=== PATIENT | male | born 1945 | race Caucasian/White ===

== ENCOUNTER 2017-05-01 13:57 | Emergency (ER) | payer MEDICARE ==
--- NOTE | 2017-05-01 15:11 | ED ---
Abdominal Pain/Male - HPI Summary HPI Summary: 71 y/o male here c/o constipation unable to have a normal bowel movement in the last 4 days. He has been taking Senokot, Miralax and fleet enema and he has not been able to have a bowel movement. He has hx of constipation but usually it resolves with the above medications. He also has Hx of cholecytectomy 17 years ago. - History of Current Complaint Chief Complaint: UCGI Stated Complaint: ABDOMINAL PAIN/CONSTIPATION Time Seen by Provider: 05/01/17 15:01 Hx Obtained From: Patient Onset/Duration: Gradual Onset, Lasting Days - 7 days Timing: Constant Severity Initially: Moderate Severity Currently: Moderate Pain Scale Used: 0-10 Numeric - 2 Location: Diffuse Radiates: No Character: Cramping Aggravating Factor(s): Food Alleviating Factor(s): Nothing Associated Signs And Symptoms: Positive: Negative - Allergies/Home Medications Allergies/Adverse Reactions: Allergies Allergy/AdvReac Type Severity Reaction Status Date / Time Celecoxib [From Celebrex] Allergy Rash Verified 05/01/17 14:32 Cephalexin [From Keflex] Allergy Rash Verified 05/01/17 14:32 Metformin Allergy DIARRHEA Verified 05/01/17 14:32 AND CONSTIPATION PROBLEMS Silver Sulfadiazine Allergy Rash Verified 05/01/17 14:32 [From Silvadene] Venlafaxine [From Effexor] Allergy Edema Verified 05/01/17 14:32 Home Medications: Home Medications Zolpidem Tartrate [Ambien] 5 mg PO 05/01/17 [History] PMH/Surg Hx/FS Hx/Imm Hx Endocrine/Hematology History: Reports: Hx Diabetes - TYPE II- DIET CONTROLLED PER PATIENT Cardiovascular History: Reports: Hx Peripheral Vascular Disease - BOTH FEET Denies: Hx Hypertension, Hx Pacemaker/ICD GI History: Reports: Hx Irritable Bowel History: Denies: Hx Renal Disease Musculoskeletal History: Reports: Hx Arthritis - NECK, Other Musculoskeletal History - DDD, STENOSIS-LOWER BACK PRIMARILY PER PATIENT Sensory History: Reports: Hx Cataracts - BILATERAL, Hx Contacts or Glasses - GLASSES Denies: Hx Hearing Aid Opthamlomology History: Reports: Hx Cataracts - BILATERAL, Hx Contacts or Glasses - GLASSES Neurological History: Reports: Other Neuro Impairments/Disorders - RAYNOIDS DISEASE Psychiatric History: Denies: Hx Panic Disorder - Cancer History Cancer Type, Location and Year: BASAL CELL ON HEAD-REMOVED NO TREATMENT - Surgical History Surgery Procedure, Year, and Place: GALLBLADDER 1997. ROTATOR CUFF TEAR SHOULDER/AC JOINT CLEANOUT 2002. LEFT ROTATOR CUFF 2006. LUMP REMOVED LEFT TESTICLE 2006. BASAL CELL CARCINOMA REMOVED FROM HEAD 2007. BILATERAL CATARACTS 2016 Hx Anesthesia Reactions: Yes - INCREASED ANXIETY WHEN AWAKE DURING A PROCEDURE- VOMITING FROM ANXIETY Infectious Disease History: No Infectious Disease History: Denies: Traveled Outside the [place] in Last 30 Days - Social History Alcohol Use: Occasionally Alcohol Amount: FEW GLASSES OF WINE WEEKLY Substance Use Type: Reports: None Smoking Status (MU): Never Smoked Tobacco Have You Smoked in the Last Year: No Review of Systems Constitutional: Negative Eyes: Negative ENT: Negative Cardiovascular: Negative Respiratory: Negative Positive: Abdominal Pain, Nausea Genitourinary: Negative Musculoskeletal: Negative Skin: Negative Neurological: Negative Psychological: Normal All Other Systems Reviewed And Are Negative: Yes Physical Exam - Summary Physical Exam Summary: VITAL SIGNS: Reviewed. GENERAL: Patient is a well developed and nourished male who is sitting comfortable in the stretcher. Patient is not in any acute respiratory distress. HEAD AND FACE: Normacephalic and atraumatic. EYES: PERRLA, EOMI x 2, EARS: Hearing grossly intact. MOUTH: Oropharynx within normal limits. NECK: Supple, trachea is midline, no adenopathy, no JVD, no carotid bruit, no c- spine tenderness, neck with full ROM. CHEST: Symmetric, no tenderness at palpation LUNGS: CTA B/L. No wheezing or crackles. CVS: RRR, S1 and S2 present, no murmurs or gallops appreciated. ABDOMEN: Soft, NT, No distention. Normal BS. Rectal exam: Normal sphincter tone , one external hemorrhoid and no stool the vault. EXTREMITIES: FROM in all major joints, no edema, no cyanosis or clubbing. NEURO: Alert and oriented x 3. No acute neurological deficits. Speech is normal and follows commands. SKIN: Dry and warm Triage Information Reviewed: Yes Vital Signs On Initial Exam: Initial Vitals Temp Pulse Resp BP Pulse Ox 98.0 F 67 18 105/63 100 05/01/17 14:28 05/01/17 14:28 05/01/17 14:28 05/01/17 14:28 05/01/17 14:28 Vital Signs Reviewed: Yes Diagnostics - Vital Signs Vital Signs Temp Pulse Resp BP Pulse Ox 05/01/17 14:28 98.0 F 67 18 105/63 100 - Laboratory Lab Statement: Any lab studies that have been ordered have been reviewed, and results considered in the medical decision making process. Abdominal Pain Fem Course/Dx - Course Assessment/Plan: 71 y/o male here c/o constipation unable to have a normal bowel movement in the last 4 days. He has been taking Senokot, Miralax and fleet enema and he has not been able to have a bowel movement. He has hx of constipation but usually it resolves with the above medications. He also has Hx of cholecytectomy 17 years ago. Abdominal x ray was ordered to r/o constipation vs SBO. Xray is read negative for obstruction and positive for large amount of stool. Therefore he will be given a prescripion for Lactulose, fleet enema, miralax and colase. I discussed all the findings and test results with the patient. Patient was instructed to return to the emergency room immediately if any of the symptoms return or worsens. Plan of care was discussed with the patient and understands and agrees. All questions were answered at patient satisfaction. There were no further complaints or concerns. Lung exam before discharge: CTA B/L. Good air exchange. No wheezing or crackles heard. CVS: S1 and S2 present. No murmurs appreciated. Patient is alert and oriented x 3. Patient is hemodynamically stable. Patient will be discharged home with follow up telesales agent in the next 2-3 days - Diagnoses Differential Diagnosis/HQI/PQRI: Bowel Obstruction, Constipation Provider Diagnoses: Constipation Discharge - Discharge Plan Condition: Stable Disposition: HOME Prescriptions: Docusate CAP* [Colace Cap*] 100 mg PO BID PRN #10 cap PRN Reason: Constipation Lactulose* 30 ml PO DAILY PRN #1 bottle PRN Reason: Constipation Magnesium CITRATE* [Citrate of Magnesia*] 150 ml PO SEE INSTRUCTIONS #1 btl Ondansetron TAB* [Zofran 4 MG Tab*] 4 mg PO Q6H PRN #10 tab PRN Reason: Vomiting Polyethylene Glycol 3350* [Miralax*] 17 gm PO DAILY #12 packet Sodium Phosphate ADULT ENEMA* [Fleet Enema*] 1 enema GA BEDTIME PRN #2 btl PRN Reason: Constipation Patient Education Materials: Constipation (ED) Referrals: Thi Pan MD [Primary Care Provider] - Additional Instructions: Please increase water intake Increase fruits and vegetables If symptoms worsen please go to the ED
--- NOTE | 2017-05-01 15:34 | RAD ---
HISTORY: Constipation COMPARISONS: CT dated April 22, 2011 VIEWS: Frontal supine and upright views of the abdomen. FINDINGS: BOWEL: There is a nonobstructive bowel gas pattern. There is a large amount of stool within the colon. CALCULI: There are no abnormal calculi. BONES AND SOFT TISSUES: Mild degenerative changes are noted. OTHER FINDINGS: The lung bases are clear. There is no subphrenic gas. Surgical clips are noted in the right upper quadrant. IMPRESSION: NONOBSTRUCTIVE BOWEL GAS PATTERN. LARGE AMOUNT OF STOOL WITHIN THE COLON.
[2017-05-01 16:31] VITALS: BP 106/60
== END 2017-05-01 16:32 | disposition home or self-care (01) ==
LOC: UCEAST 13:57
DX: K59.00 Constipation, unspecified (principal); E11.9 Type 2 diabetes mellitus without complications; I73.9 Peripheral vascular disease, unspecified; K58.9 Irritable bowel syndrome, unspecified; M13.88 Other specified arthritis, other site; I73.00 Raynaud's syndrome without gangrene; Z88.3 Allergy status to other anti-infective agents
CPT/HCPCS: 74020; 99212; G0463

== ENCOUNTER 2017-08-03 08:05 | Day surgery (SDC) | payer MEDICARE ==
--- NOTE | 2017-07-28 07:20 | HP ---
CC: Dr. Pan * HISTORY AND PHYSICAL: DATE OF PLANNED ADMISSION AND SURGERY: 08/03/17 HISTORY OF PRESENT ILLNESS: Mr. Bull is a 71-year-old white male who is admitted with a suspicious bladder lesion for cystoscopy and excisional biopsy. I have been following with Mr. Bull for several years because of a prostate nodule and an element of bladder outlet obstruction. The prostate nodule was biopsied about 10 years ago and was benign. It has not changed in its consistency and his PSA has remained very low at 1.4. Over the last several months, he has noted pelvic pain, perineal discomfort associated with symptoms suggestive of prostatitis. He did not respond to several courses of antibiotics and also did not respond to treatment with NSAID. He had a pelvic MRI which was normal. He finally improved after he was referred for pelvic relaxation exercises with physiotherapy. He has been doing much better with improvement in his voiding. To rule out any urethral or bladder pathology, he underwent a flexible cystoscopy in the office. There was a suspicious papillary and flat lesions noted in the left trigone just cephalad to the left ureteral orifice that had the appearance of a well differentiated transitional cell carcinoma. No other suspicious bladder lesions were seen. Because of that finding, which is probably unrelated to his pelvic symptoms and pain, the patient is admitted for excisional biopsies. PAST MEDICAL HISTORY AND SYSTEM REVIEW: He is a nonsmoker. He is very healthy. He is on no chronic medications. He reports being allergic to KEFLEX, CELEBREX, SULFASILVADENE and to EFFEXOR. He denies any cardiac or pulmonary diseases or symptoms. PHYSICAL EXAMINATION GENERAL: Pleasant white male who looks rather anxious. VITAL SIGNS: Blood pressure 120/80, pulse of 80. LUNGS: Clear. HEART: Regular and rhythmic. No murmurs. ABDOMEN: Soft. No masses, no tenderness and no CVA tenderness. EXTERNAL GENITALIA: Normal. RECTAL: Exam shows a firm nodule in the right lobe of the prostate. IMPRESSION: 1. Pelvic floor syndrome, chronic prostatitis, much improved after physiotherapy. 2. Lesion in the left trigone of the bladder, suspicious for low-grade transitional cell carcinoma. PLAN: Cystoscopy and excisional biopsy of the above lesion. I discussed the above plans with the patient. All his questions were answered. The patient had a renal ultrasound in the office and the study was normal, showing normal kidneys, no hydronephrosis or renal masses. [id number]/[facility] #: [id number] [facility]
[~2017-08-03 08:05] MED LIST: Buffered Lidocaine 0.9% SYRIN* 5 ML/SYR SYRINGE INTRADERM ONE; Iohexol 180 (CONTRAST) 10 ML SDV IV ONE; Sodium Citrate/Citric Acid* 15 ML UDC PO ONE
[2017-08-03] MEDS ORDERED: Levofloxacin 750 MG IVPREMIX(* 750 MG/150 ML BAG ONE (08:18)
[2017-08-03] MEDS ORDERED: Sodium Citrate/Citric Acid* 15 ML UDC ONE (08:18)
[2017-08-03] MEDS ORDERED: Buffered Lidocaine 0.9% SYRIN* 5 ML/SYR SYRINGE ONE (08:18)
[2017-08-03] MEDS ORDERED: fentaNYL* 50 MCG/ML 2 ML VIAL (100 MCG VIAL) ONE ×2 (10:19→11:47)
[2017-08-03] MEDS ORDERED: Midazolam* 1 MG/ML 2 ML VIAL (2 MG) ONE (10:19)
[2017-08-03] MEDS ORDERED: Propofol* 10 MG/ML 20 ML BTL IV PUSH ONE (10:47)
[2017-08-03] MEDS ORDERED: Lidocaine 2% PF * 5 ML VIAL ONE (10:47)
[2017-08-03] MEDS ORDERED: Ondansetron INJ* 2 MG/ML VIAL IV PRN (11:34)
[2017-08-03] MEDS ORDERED: Naloxone* 0.4 MG/ML 1 ML VIAL IV PRN (11:34)
[2017-08-03] MEDS ORDERED: oxyCODONE/Acetamin 5/325 MG* TAB ONE ×2 (11:46→14:58)
[2017-08-03] MEDS: fentaNYL* 50 MCG/ML 2 ML VIAL (100 MCG VIAL) IV PRN ×2 (11:48→12:33)
[2017-08-03] MEDS ORDERED: oxyCODONE/Acetamin 5/325 MG* TAB PO PRN (11:52)
[2017-08-03] MEDS ORDERED: LR @ 40 MLS/HR IV SCH (12:00)
[2017-08-03] MEDS ORDERED: mitoMYcin PWD* 40 MG in Sterile Water for Inj* 40 ML IRRIGATION ONE (12:00)
[2017-08-03 15:09] VITALS: BP 119/67
--- NOTE | 2017-08-04 01:42 | OP ---
CC: Dr. Pan * DATE OF OPERATION: 08/03/17 - [facility] DATE OF : 49 SURGEON: Dell Guerrero MD ANESTHESIOLOGIST: Dr. Kristian Marina. ANESTHESIA: General. PRE-OP DIAGNOSIS: Suspicious bladder lesion, left base of bladder. POST-OP DIAGNOSIS: Suspicious bladder lesion, left base of bladder, pending pathology. OPERATIVE PROCEDURE: 1. Cystoscopy. 2. Excisional biopsy and fulguration of bladder lesion, left base. INDICATION FOR PROCEDURE: Mr. Bull is a 71-year-old white male whom I have been following because of bladder outlet obstruction, prostate nodule, and symptoms of chronic prostatitis. He is a nonsmoker. As part of the work-up of his voiding symptoms, he had an office cystoscopy, which showed a suspicious lesion in the left base of the bladder. Because of that finding, the patient is admitted for the above procedure. PATHOLOGY AT CYSTOSCOPY: The penile and bulbar urethrae looked normal. The prostatic urethra measured 2.5 cm in length and there was only moderate degree of obstruction by prostate enlargement. Examination of the bladder showed a single orifice on each site. The orifices looked normal. There was a small papillary lesion measuring about 5 mm in size, located just cephalad to the left ureteral orifice. Adjacent to that lesion, there was irregularity and elevation of the bladder mucosa, suspicious for flat transitional cell carcinoma or carcinoma in situ. The lesions covered an area of about 1 cm. The left ureteral orifice was intact and not involved with the lesions. The rest of the bladder wall looked normal. There were no other areas to suggest carcinoma in situ and no other papillary or suspicious lesions seen. Minimal trabeculations were noted. No calculi or diverticula were noted. DESCRIPTION OF PROCEDURE: After successful general anesthesia, the patient was placed in the lithotomy position and was prepped and draped for a cystoscopy. Cystoscopy was performed. The bladder was carefully inspected and the above findings were again noted. Using the rigid biopsy forceps, the above lesion was excised down to muscle. The sites of the biopsies and the surrounding areas were fulgurated with the Bugbee electrode using the coagulation current. There was no bladder perforation and the left ureteral orifice was intact. Clear efflux was noted from the orifice at the end of the procedure. At the completion of the procedure, there were no residual lesions seen. There was very good hemostasis. The ureteral orifice was intact. The cystoscope was removed and a size 16-Khmer English catheter was passed inside the bladder and the balloon inflated with 10 cc of water. The patient tolerated the procedure well and left the operating room in good condition. Because of the suspicious appearance of the lesion, the patient will be given one dose of intravesical mitomycin-C in the recovery room. [id number]/[facility] #: [id number] MTD[facility]
== END 2017-08-03 15:10 | disposition home or self-care (01) ==
LOC: OR 08:05
PROVIDERS: ATTEND Urology
DX: C67.5 Malignant neoplasm of bladder neck (principal); N41.1 Chronic prostatitis; E11.9 Type 2 diabetes mellitus without complications; K21.9 Gastro-esophageal reflux disease without esophagitis; I73.00 Raynaud's syndrome without gangrene
CPT/HCPCS: 88305; 88341; 88342; A9270-GY; J2250; J2704; J3010; J9280

== ENCOUNTER 2017-11-29 16:20 | Emergency (ER) | payer MEDICARE ==
--- OUTSIDE RECORDS SUMMARY | 2017-11-29 16:26 | XMS REPORT ---
:1945 External Reference #:[id number] Author Organization [facility] Address [address] [address] Phone [phone] Care Team Providers Name Role Phone Thi Pan MD Primary Care Physician Unavailable Payers Type Date Identification Numbers Payment Provider Subscriber Commercial Policy Number: [id number] [employer] Medicare Ann-Marie Rao Group Number: [id number] [address] PayID: [id number] [place] [address] Medigap Part B Expires: 2014 Policy Number: [employer] Insurance Ann-Marie [id number] Gregoria Group Number: [id number] [address] PayID: [id number] [place] [address] Advance Directives Type Date Description Status Comment Other Directive 01/25/2007 Current and Verified Problems Date Description Provider Status Onset: 09/16/2010 Type 2 diabetes mellitus Thi Pan M.D. Active Onset: 09/16/2010 Hyperlipidemia Thi Pan M.D. Active Onset: 12/27/2015 Irritable bowel syndrome Thi Pan M.D. Active Family History Date Family Member(s) Problem(s) Comments : (age 72 Father due to Heart onset in his 60s Years) Disease : (age 87 Mother due to RI Years) Siblings 4 Siblings 3 brothers, 1 sister, no RI, no CVA, no DM, all doing well Second Brother Melanoma Social History Type Date Description Comments Marital Status Occupation [employer] Occupation Retired from [employer] Health Care Proxy : Kassie Gavin Cigarette Use Never Smoked Cigarettes ETOH Use Drinks 1 Alcoholic Beverage Per Day Smoking Patient has never smoked General Hx Text Health Care Proxy: Kassie Gavin Allergies, Adverse Reactions, Alerts Date Description Reaction Status Severity Comments 02/25/2010 Keflex rash active Moderate 02/25/2010 Celebrex rash active Moderate 09/06/2011 Sulfadiazine rash active 03/07/2012 Effexor facial twitching active 02/15/2014 Metformin diarrhea active Medications Medication Date Status Form Strength Qnty SIG Indications Ordering Provider Doxycycline 07/20 Active Tablets 100mg 2tabs 2 cap one S70.362A [place] Monohydrate dose Rosa Martínez Tramadol HCL 03/18 Active Tablets 50mg 120ta 1-2 tablets R10.2 bs every 6 Cotton, hours as M.D. needed Zolpidem 09/28 Active Tablets 10mg 30tab take 1/2 to G47.00 Thi Tartrate s 1 tablet at Cotton, bedtime as M.D. needed maximum daily dose=1 Voltaren 04/29 Active Gel 1% 300gm apply 2 grams to Cotton, affected M.D. area twice a day, as needed Omeprazole 10/[address] 40mg 30cap 1 by mouth K58.9 s every day Cotton, as needed M.D. Luxiq 05/20 Active Foam 0.12% 100gm apply to ears as ELISA Hernandez needed Vitamin B-12 09/05 Active Tablets Sub 1000mcg 1 by mouth once daily Cotton, M.D. Elizabeth Contour 02/06 Active Strips 50uni test once Thi Blood Glucose ts daily Cotton, Test Strips M.D. Fluticasone 09/06 Active Suspension 50mcg/Act 16gm 2 Thi Propionate intranasal Cotton, puffs once M.D. daily as needed Lancets And 10/13 Active 50uni for use Thi Test Strips ts once daily Cotton, M.D. Vitamin C Active Capsules 500mg 1 po qd Unknown /0000 Multi For Him Active Capsules 1 po qd Unknown /0000 Aspir-[address] 81mg 1 po qd Unknown /0000 Saw [place] Active Capsules 450mg 120ca 1 po bid ps Tamsulosin HCL Active Capsules 0.4mg 1 by mouth Unknown every day Azithromycin 11/03 Hx Tablets 250mg 6tabs 2 tabs by J06.9 Chris mouth on Bengali, [employer] - day 1; 1 11/08 tab mouth every day on days 2- Azithromycin 05/20 Hx Tablets 250mg 6tabs 2 tabs by 461.8 Johny mouth every Mary, [employer] - day x1 day, 08/19 1 tab by mouth every day x 4 days Analpram-HC 05/07 Hx Cream 1-1% 30gm apply bid 455.6 prn Fredy Pna M.DLaine 03/19 Azithromycin 01/05 Hx Tablets 250mg 6tabs 2 tabs po 461.9 on day 1; 1 Cotton, - tab po qd M.D. 01/16 on days 2- Azithromycin 09/20 Hx Tablets 250mg 6tabs 2 tabs po on day 1; 1 Cotton, - tab po qd M.D. 01/05 on days 2- Azithromycin 07/12 Hx Tablets 250mg 6tabs two tabs 461.9 day one, Karson, N.P. - one daily 07/22 till Metformin HCL 11/22 Hx Tablets 500mg 30tab Take One 250.00 s Tablet By Cotton, - Mouth Every M.D. Lovastatin 11/22 Hx Tablets 40mg 90tab Take 1 s Tablet By Cotton, - Mouth At M.D. 11/03 Bedtime Azithromycin 09/06 Hx Tablets 250mg 6tabs 2 tabs po 461.9 on day 1; 1 Cotton, - tab po qd M.D. 11/20 on days 2- Zithromax Z-Riley 01/20 Hx Tablets 250mg 1Pack two po initially Maxim, - then one po M.D. 01/30 Orthotics 11/04 Hx 1Pair Cotton, - M.D. 04/28 Guaiatussin ac 09/22 Hx Syrup 100-10mg/ 240ml 2 teaspoons 5ML by mouth Cotton, - every 4 M.D. 10/13 hours needed Zolpidem 09/17 Hx Tablets 10mg 20tab 07/26 - 1 466.0 Thi Tar s tablet by Cotton, - mouth once M.D. 11/22 daily at bedtime Azithromycin 09/10 Hx Tablets 250mg 6tabs 2 tabs po 461.9 on day 1; 1 Cotton, - tab po qd M.D. 09/17 on days 2- Tramadol HCL 09/10 Hx Tablets 50mg 30tab 1-2 tablets 338.29 s every 6 Cotton, - hours as M.D. 09/17 needed to 8 per day Zithromax Z-Riley 05/27 Hx Tablets 250mg 1Pack two po initially Cotton, - then one po M.D. 06/06 Luxiq 03/02 Hx Foam 0.12% 100gm apply to ears as Cotton, - needed M.D. 08/25 Fluticasone Hx Suspension 50mcg/Act 1bott 2 spray Edwige Propionate le each Elle, - nostril in M.D., FACP 09/17 Lovastatin Hx Tablets 20mg 30tab Take One Thi /0000 s Tablet By Cotton, - Mouth At M.D. 11/22 Bedtime Melatonin Hx Capsules 5mg 1 po q hs Unknown - 03/07 Fish Oil Hx Capsules 1000mg 2 po qd Unknown - 02/15 Alpha Lipoic Hx Capsules 200mg 1 tab qd Unknown - 05/[address] 40mg 1 by mouth Unknown Sodium every day - (prescribed 07/25 at ER) Linzess Hx Capsules 145mcg take 1 Tatum, capsule by MD Jonas - mouth one 04/29 time daily /2015 Ciprofloxacin Hx Solution 0.3% 4 drops to Unknown HCL /0000 right ear - twice a day 09/28 for 7 days Prednisolone Hx Suspension 1% Unknown Acetate /0000 - 09/28 Ketorolac Hx Solution 0.5% instill 1 Unknown Tromethamine /0000 drop into - the right 09/28 eye times a day starting the day b Immunizations CPT Code Status Date Vaccine Lot # [id number] Given 05/31/2017 Pneumonia Vaccine [id number] Given 05/19/2017 Influenza Virus Vaccine, Quadrivalent, Split, [id number] Preservative Free [id number] Given 05/28/2016 Influenza Virus Vaccine, Quadrivalent, Split [id number] Virus, Im Use [id number] Given 05/02/2015 Afluria Vaccine 44081 Given 03/20/2015 Pneumococcal Conjugate Vaccine 13 Valent For [id number] Intramuscular Use Q2035 Given 04/27/2014 Afluria Vaccine 95925 Given 09/03/2013 Zoster (Zostavax) [id number] 37793 Given 11/23/2011 Pneumonia Vaccine [id number] 06198 Given 05/01/2008 Tdap - Tetanus/Diptheria/Acellular Pertussis Vital Signs Date Vital Result Comment 11/03/2017 Weight 154.00 lb Heart Rate 66 /min BP Systolic Sitting 105 mmHg BP Diastolic Sitting 65 mmHg Body Temperature 96.6 F O2 % BldC Oximetry 97 % 07/20/2017 Height 72 inches 6'0" Weight 160.75 lb Heart Rate 82 /min BP Systolic 100 mmHg BP Diastolic 50 mmHg Body Temperature 95.9 F O2 % BldC Oximetry 98 % BMI (Body Mass Index) 21.8 kg/m2 05/31/2017 Height 72 inches 6'0" Weight 155.50 lb Heart Rate 67 /min BP Systolic 118 mmHg BP Diastolic 66 mmHg Body Temperature 95.9 F O2 % BldC Oximetry 98 % BMI (Body Mass Index) 21.1 kg/m2 04/26/2017 Height 72 inches 6'0" Weight 156.75 lb Heart Rate 66 /min Body Temperature 96.8 F O2 % BldC Oximetry 99 % BMI (Body Mass Index) 21.3 kg/m2 03/31/2017 Height 72 inches 6'0" Weight 157.50 lb Heart Rate 79 /min BP Systolic 110 mmHg BP Diastolic 60 mmHg Body Temperature 97.8 F O2 % BldC Oximetry 99 % BMI (Body Mass Index) 21.4 kg/m2 03/18/2017 Height 72 inches 6'0" Weight 154.00 lb Heart Rate 58 /min BP Systolic 112 mmHg BP Diastolic 69 mmHg Body Temperature 97.0 F O2 % BldC Oximetry 98 % BMI (Body Mass Index) 20.9 kg/m2 09/28/2016 Weight 161.00 lb Heart Rate 69 /min BP Systolic Sitting 124 mmHg BP Diastolic Sitting 76 mmHg Body Temperature 98.6 F O2 % BldC Oximetry 99 % 05/28/2016 Height 71 inches 5'11" Weight 165.00 lb Heart Rate 102 /min BP Systolic 110 mmHg BP Diastolic 78 mmHg O2 % BldC Oximetry 97 % BMI (Body Mass Index) 23.0 kg/m2 04/29/2016 Height 71 inches 5'11" Weight 165.00 lb Heart Rate 67 /min BP Systolic 100 mmHg BP Diastolic 63 mmHg Body Temperature 96.6 F O2 % BldC Oximetry 99 % BMI (Body Mass Index) 23.0 kg/m2 11/04/2015 Height 71 inches 5'11" Weight 166.00 lb Heart Rate 68 /min BP Systolic Sitting 108 mmHg BP Diastolic Sitting 64 mmHg Body Temperature 95.6 F O2 % BldC Oximetry 99 % BMI (Body Mass Index) 23.1 kg/m2 10/16/2015 Height 71 inches 5'11" Weight 165.00 lb Heart Rate 76 /min BP Systolic Sitting 124 mmHg BP Diastolic Sitting 80 mmHg Respiratory Rate 15 /min Body Temperature 98.2 F O2 % BldC Oximetry 98 % BMI (Body Mass Index) 23.0 kg/m2 05/21/2015 Height 71 inches 5'11" Weight 167.00 lb Heart Rate 74 /min BP Systolic Sitting 118 mmHg BP Diastolic Sitting 72 mmHg Respiratory Rate 13 /min Body Temperature 98.0 F O2 % BldC Oximetry 98 % BMI (Body Mass Index) 23.3 kg/m2 03/20/2015 Height 71 inches 5'11" Weight 167.50 lb Heart Rate 71 /min BP Systolic Sitting 112 mmHg BP Diastolic Sitting 60 mmHg Body Temperature 98.6 F O2 % BldC Oximetry 98 % BMI (Body Mass Index) 23.4 kg/m2 08/19/2014 Height 72 inches 6'0" Weight 170.00 lb Heart Rate 64 /min BP Systolic 110 mmHg BP Diastolic 70 mmHg BMI (Body Mass Index) 23.1 kg/m2 05/20/2014 Weight 170.00 lb Heart Rate 84 /min BP Systolic Sitting 110 mmHg BP Diastolic Sitting 62 mmHg Body Temperature 96.0 F 02/15/2014 Height 72 inches 6'0" Weight 160.75 lb Heart Rate 66 /min BP Systolic Sitting 120 mmHg BP Diastolic Sitting 70 mmHg Body Temperature 97.4 F BMI (Body Mass Index) 21.8 kg/m2 11/12/2013 Weight 161.50 lb Heart Rate 80 /min BP Systolic 110 mmHg BP Diastolic 62 mmHg Respiratory Rate 16 /min Body Temperature 96.9 F 08/13/2013 Weight 166.00 lb Heart Rate 72 /min BP Systolic 118 mmHg BP Diastolic 66 mmHg 06/07/2013 Weight 166.25 lb Heart Rate 76 /min BP Systolic Sitting 104 mmHg BP Diastolic Sitting 62 mmHg 05/07/2013 Weight 166.00 lb Heart Rate 64 /min BP Systolic Sitting 110 mmHg BP Diastolic Sitting 68 mmHg 02/08/2013 Height 72 inches 6'0" Weight 165.00 lb Heart Rate 88 /min BP Systolic Sitting 104 mmHg BP Diastolic Sitting 62 mmHg BMI (Body Mass Index) 22.4 kg/m2 01/05/2013 Weight 166.00 lb Heart Rate 68 /min BP Systolic Sitting 126 mmHg BP Diastolic Sitting 84 mmHg Body Temperature 94.7 F 09/05/2012 Height 70.5 inches 5'10.50" Weight 169.00 lb Heart Rate 66 /min BP Systolic Sitting 104 mmHg BP Diastolic Sitting 60 mmHg BMI (Body Mass Index) 23.9 kg/m2 07/12/2012 Height 70.5 inches 5'10.50" Weight 166.00 lb Heart Rate 68 /min BP Systolic Sitting 124 mmHg BP Diastolic Sitting 72 mmHg Body Temperature 98.4 F BMI (Body Mass Index) 23.5 kg/m2 03/07/2012 Height 70.5 inches 5'10.50" Weight 173.25 lb Heart Rate 64 /min BP Systolic Sitting 118 mmHg BP Diastolic Sitting 68 mmHg BMI (Body Mass Index) 24.5 kg/m2 11/23/2011 Height 70.5 inches 5'10.50" Weight 177.00 lb Heart Rate 74 /min BP Systolic Sitting 124 mmHg BP Diastolic Sitting 76 mmHg BMI (Body Mass Index) 25.0 kg/m2 09/06/2011 Height 70.5 inches 5'10.50" Weight 179.00 lb Heart Rate 80 /min BP Systolic Sitting 136 mmHg BP Diastolic Sitting 78 mmHg Body Temperature 98.6 F BMI (Body Mass Index) 25.3 kg/m2 04/29/2011 Height 70.5 inches 5'10.50" Weight 169.00 lb Heart Rate 68 /min BP Systolic Sitting 118 mmHg BP Diastolic Sitting 74 mmHg BMI (Body Mass Index) 23.9 kg/m2 04/16/2011 Height 70.5 inches 5'10.50" Weight 167.00 lb Heart Rate 70 /min BP Systolic Sitting 134 mmHg BP Diastolic Sitting 58 mmHg BMI (Body Mass Index) 23.6 kg/m2 01/18/2011 Height 70.5 inches 5'10.50" Weight 168.00 lb Heart Rate 74 /min BP Systolic Sitting 124 mmHg BP Diastolic Sitting 76 mmHg Body Temperature 98.6 F BMI (Body Mass Index) 23.8 kg/m2 10/13/2010 Weight 168.00 lb Heart Rate 80 /min BP Systolic 114 mmHg BP Diastolic 70 mmHg 09/17/2010 Heart Rate 88 /min BP Systolic 118 mmHg BP Diastolic 76 mmHg Body Temperature 99.8 F O2 % BldC Oximetry 98 % 09/10/2010 Weight 174.00 lb Heart Rate 78 /min BP Systolic 124 mmHg BP Diastolic 70 mmHg Body Temperature 97.6 F 08/25/2010 Height 72 inches 6'0" Weight 175.00 lb Heart Rate 80 /min BP Systolic 130 mmHg BP Diastolic 82 mmHg BMI (Body Mass Index) 23.7 kg/m2 05/27/2010 Weight 170.75 lb Heart Rate 60 /min BP Systolic 122 mmHg BP Diastolic 70 mmHg Body Temperature 97.8 F 03/02/2010 Weight 171.50 lb Heart Rate 78 /min BP Systolic 110 mmHg BP Diastolic 84 mmHg Results Test Date Test Result H/L Range Note Laboratory test finding 10/25/2017 PSA Screening 1.462 ng/mL 0-4.0 1 Lipid Profile (Trig/Chol/HDL) 10/25/2017 Triglycerides 78 mg/dL 2, 3 Cholesterol 156 mg/dL 2, 4 HDL Cholesterol 40.3 mg/dL 2, 5 LDL Cholesterol 100 mg/dL 2, 6 Comp Metabolic Panel 10/25/2017 Sodium 141 mmol/L 139-145 2 Potassium 4.2 mmol/L 3.5-5.0 2 Chloride 105 mmol/L 101-111 2 Co2 Carbon Dioxide 30 mmol/L 22-32 2 Anion Gap 6 mmol/L 2-11 2 Glucose 110 mg/dL High 70-100 2 Blood Urea Nitrogen 30 mg/dL High 6-24 2 Creatinine 1.11 mg/dL 0.67-1.17 2 BUN/Creatinine Ratio 27.0 High 8-20 2 Calcium 9.2 mg/dL 8.6-10.3 2 Total Protein 5.9 g/dL Low 6.4-8.9 2 Albumin 3.8 g/dL 3.2-5.2 2 Globulin 2.1 g/dL 2-4 2 Albumin/Globulin Ratio 1.8 1-3 2 Total Bilirubin 0.70 mg/dL 0.2-1.0 2 Alkaline Phosphatase 84 U/L 34-104 2 Alt 19 U/L 7-52 2 Ast 19 U/L 13-39 2 Egfr Non- 65.5 >60 2 Egfr 84.2 >60 2, 7 Laboratory test 10/25/2017 Hemoglobin A1c (Glyco 6.3 % High 4.0-5.6 2, 8 finding HGB) Urine Microalbumin 10/25/2017 Ur Microalbumin (mg/L) < 15.0 2 Random mg/L Urine Creatinine 124.39 mg/dL 2 Urine Microalbumin/Creatinine TNP ug/mg <31 2, 9 Laboratory test finding 08/03/2017 Point of Care Glucose 124 mg/dL High 70 -100 10 CBC Auto Diff 08/01/2017 White Blood Count 7.7 10^3/uL 3.5-10.8 Red Blood Count 4.74 10^6/uL 4.0-5.4 Hemoglobin 15.0 g/dL 14.0-18.0 Hematocrit 44 % 42-52 Mean Corpuscular Volume 94 fL 80-94 Mean Corpuscular Hemoglobin 32 pg High 27-31 Mean Corpuscular HGB Conc 34 g/dL 31-36 Red Cell Distribution Width 13 % 10.5-15 Platelet Count 180 10^3/uL 150-450 Mean Platelet Volume 8 um3 7.4-10.4 Abs Neutrophils 5.3 10^3/uL 1.5-7.7 Abs Lymphocytes 1.2 10^3/uL 1.0-4.8 Abs Monocytes 0.9 10^3/uL High 0-0.8 Abs Eosinophils 0.3 10^3/uL 0-0.6 Abs Basophils 0 10^3/uL 0-0.2 Abs Nucleated RBC 0 10^3/uL Granulocyte % 68.3 % 38-83 Lymphocyte % 14.9 % Low 25-47 Monocyte % 12.1 % High 1-9 Eosinophil % 4.2 % 0-6 Basophil % 0.5 % 0-2 Nucleated Red Blood Cells % 0.1 Basic Metabolic Panel 08/01/2017 Sodium 139 mmol/L 133-145 Potassium 4.3 mmol/L 3.5-5.0 Chloride 105 mmol/L 101-111 Co2 Carbon Dioxide 30 mmol/L 22-32 Anion Gap 4 mmol/L 2-11 Glucose 87 mg/dL 70-100 Blood Urea Nitrogen 19 mg/dL 6-24 Creatinine 1.02 mg/dL 0.67-1.17 BUN/Creatinine Ratio 18.6 8-20 Calcium 8.9 mg/dL 8.6-10.3 Egfr Non- 72.4 >60 Egfr 93.1 >60 11 Urine Culture And 08/01/2017 Urine Culture SEE RESULT BELOW 12, 13 Sensitivities Basic Metabolic Panel 04/20/2017 Sodium 140 mmol/L 133-145 Potassium 4.2 mmol/L 3.5-5.0 Chloride 105 mmol/L 101-111 Co2 Carbon Dioxide 29 mmol/L 22-32 Anion Gap 6 mmol/L 2-11 Glucose 90 mg/dL 70-100 Blood Urea Nitrogen 22 mg/dL 6-24 Creatinine 1.11 mg/dL 0.67-1.17 BUN/Creatinine Ratio 19.8 8-20 Calcium 9.1 mg/dL 8.6-10.3 Egfr Non- 65.7 >60 Egfr 84.5 >60 14 Laboratory test finding 04/20/2017 Hemoglobin A1c (Glyco 5.9 % Less than 6.0 15 HGB) Erythrocyte Sed Rate 5 mm/Hr 0-40 C Reactive Protein < 1.00 mg/L < 5.00 16 Laboratory test finding 03/31/2017 Rapid Group A Strep negative Liver Function Panel 03/01/2017 Total Protein 6.1 g/dL Low 6.4-8.9 17 Albumin 4.2 g/dL 3.2-5.2 17 Globulin 1.9 g/dL Low 2-4 17 Albumin/Globulin Ratio 2.2 1-3 17 Total Bilirubin 0.70 mg/dL 0.2-1.0 17 Direct Bilirubin 0.20 mg/dL High 0.03-0.18 17 Indirect Bilirubin 0.5 mg/dL 0.3-1.0 17 Alkaline Phosphatase 88 U/L 34-104 17 Alt 28 U/L 7-52 17 Ast 27 U/L 13-39 17 Basic Metabolic Panel 03/01/2017 Sodium 138 mmol/L 133-145 17 Potassium 4.2 mmol/L 3.5-5.0 17 Chloride 105 mmol/L 101-111 17 Co2 Carbon Dioxide 29 mmol/L 22-32 17 Anion Gap 4 mmol/L 2-11 17 Glucose 100 mg/dL 70-100 17 Blood Urea Nitrogen 19 mg/dL 6-24 17 Creatinine 1.23 mg/dL High 0.67-1.17 17 BUN/Creatinine Ratio 15.4 8-20 17 Calcium 9.1 mg/dL 8.6-10.3 17 Egfr Non- 58.3 >60 17 Egfr 75.0 >60 17, 18 Laboratory test finding 03/01/2017 PSA Diagnostic 1.384 ng/mL 0-4.0 17, 19 CBC Auto Diff 03/01/2017 White Blood Count 6.7 10^3/uL 3.5-10.8 17 Red Blood Count 4.74 10^6/uL 4.0-5.4 17 Hemoglobin 15.1 g/dL 14.0-18.0 17 Hematocrit 46 % 42-52 17 Mean Corpuscular Volume 97 fL High 80-94 17 Mean Corpuscular Hemoglobin 32 pg High 27-31 17 Mean Corpuscular HGB Conc 33 g/dL 31-36 17 Red Cell Distribution Width 13 % 10.5-15 17 Platelet Count 152 10^3/uL 150-450 17 Mean Platelet Volume 8 um3 7.4-10.4 17 Abs Neutrophils 4.5 10^3/uL 1.5-7.7 17 Abs Lymphocytes 1.1 10^3/uL 1.0-4.8 17 Abs Monocytes 0.8 10^3/uL 0-0.8 17 Abs Eosinophils 0.2 10^3/uL 0-0.6 17 Abs Basophils 0 10^3/uL 0-0.2 17 Abs Nucleated RBC 0 10^3/uL 17 Granulocyte % 67.8 % 38-83 17 Lymphocyte % 16.8 % Low 25-47 17 Monocyte % 11.8 % High 1-9 17 Eosinophil % 3.1 % 0-6 17 Basophil % 0.5 % 0-2 17 Nucleated Red Blood Cells % 0 17 Laboratory test finding 09/22/2016 PSA Diagnostic 1.088 ng/mL 0-4.0 20 Lipid Profile (Trig/Chol/HDL) 09/22/2016 Triglycerides 70 mg/dL 21 Cholesterol 143 mg/dL 22 HDL Cholesterol 47.9 mg/dL 23 LDL Cholesterol 81 mg/dL 24 Comp Metabolic Panel 09/22/2016 Sodium 139 mmol/L 133-145 Potassium 4.0 mmol/L 3.5-5.0 Chloride 105 mmol/L 101-111 Co2 Carbon Dioxide 31 mmol/L 22-32 Anion Gap 3 mmol/L 2-11 Glucose 124 mg/dL High 70-100 Blood Urea Nitrogen 21 mg/dL 6-24 Creatinine 1.06 mg/dL 0.67-1.17 BUN/Creatinine Ratio 19.8 8-20 Calcium 9.3 mg/dL 8.6-10.3 Total Protein 6.2 g/dL Low 6.4-8.9 Albumin 4.0 g/dL 3.2-5.2 Globulin 2.2 g/dL 2-4 Albumin/Globulin Ratio 1.8 1-3 Total Bilirubin 0.90 mg/dL 0.2-1.0 Alkaline Phosphatase 107 U/L High 34-104 Alt 23 U/L 7-52 Ast 24 U/L 13-39 Egfr Non- 69.3 >60 Egfr 89.1 >60 25 Laboratory test 09/22/2016 Hemoglobin A1c 6.8 % High Less than 6.0 26 finding (Glyco HGB) Urine Microalbumin 09/22/2016 Urine Creatinine 180.24 mg/dL Random Ur Microalbumin (mg/L) < 15.0 mg/L Urine Microalbumin/Creatinine TNP ug/mg <31 27 Laboratory test finding 05/25/2016 Point of Care Glucose 125 mg/dL High 74 -106 28 CBC Auto Diff 10/16/2015 White Blood Count 5.7 10^3/uL 3.5-10.8 Red Blood Count 4.55 10^6/uL 4.0-5.4 Hemoglobin 14.4 g/dL 14.0-18.0 Hematocrit 43 % 42-52 Mean Corpuscular Volume 94 fL 80-94 Mean Corpuscular Hemoglobin 32 pg High 27-31 Mean Corpuscular HGB Conc 34 g/dL 31-36 Red Cell Distribution Width 13 % 10.5-15 Platelet Count 160 10^3/uL 150-450 Mean Platelet Volume 9 um3 7.4-10.4 Abs Neutrophils 3.9 10^3/uL 1.5-7.7 Abs Lymphocytes 1.1 10^3/uL 1.0-4.8 Abs Monocytes 0.5 10^3/uL 0-0.8 Abs Eosinophils 0.2 10^3/uL 0-0.6 Abs Basophils 0 10^3/uL 0-0.2 Abs Nucleated RBC 0 10^3/uL Granulocyte % 68.8 % 38-83 Lymphocyte % 18.8 % Low 25-47 Monocyte % 9.1 % High 1-9 Eosinophil % 3.0 % 0-6 Basophil % 0.3 % 0-2 Nucleated Red Blood Cells % 0 Laboratory test finding 10/16/2015 Lipase 34 U/L 11.0-82.0 Lipid Profile (Trig/Chol/HDL) 10/09/2015 Triglycerides 71 mg/dL 29 Cholesterol 147 mg/dL 30 HDL Cholesterol 47.1 mg/dL 31 LDL Cholesterol 86 mg/dL 32 Comp Metabolic Panel 10/09/2015 Sodium 140 mmol/L 133-145 Potassium 3.9 mmol/L 3.5-5.0 Chloride 104 mmol/L 101-111 Co2 Carbon Dioxide 31 mmol/L 22-32 Anion Gap 5 mmol/L 2-11 Glucose 105 mg/dL High 70-100 Blood Urea Nitrogen 19 mg/dL 6-24 Creatinine 1.10 mg/dL 0.67-1.17 BUN/Creatinine Ratio 17.3 8-20 Calcium 9.4 mg/dL 8.6-10.3 Total Protein 6.2 g/dL Low 6.4-8.9 Albumin 4.2 g/dL 3.2-5.2 Globulin 2.0 g/dL 2-4 Albumin/Globulin Ratio 2.1 1-3 Total Bilirubin 1.00 mg/dL 0.2-1.0 Alkaline Phosphatase 86 U/L 34-104 Alt 21 U/L 7-52 Ast 20 U/L 13-39 Egfr Non- 66.6 >60 Egfr 85.6 >60 33 Laboratory test 10/09/2015 Hemoglobin A1c 6.6 % High Less than 6.0 34 finding (Glyco HGB) Laboratory test 10/03/2015 PSA Diagnostic 1.190 ng/mL 0-4.0 35 finding CBC Auto Diff 05/21/2015 White Blood Count 6.6 10^3/uL 4.8-10.8 Red Blood Count 4.87 10^6/uL 4.0-5.4 Hemoglobin 15.3 g/dL 14.0-18.0 Hematocrit 47 % 42-52 Mean Corpuscular Volume 97 fL High 80-94 Mean Corpuscular Hemoglobin 32 pg High 27-31 Mean Corpuscular HGB Conc 33 g/dL 31-36 Red Cell Distribution Width 13 % 10.5-15 Platelet Count 168 10^3/uL 150-450 Mean Platelet Volume 9 um3 7.4-10.4 Abs Neutrophils 4.4 10^3/uL 1.5-7.7 Abs Lymphocytes 1.3 10^3/uL 1.0-4.8 Abs Monocytes 0.7 10^3/uL 0-0.8 Abs Eosinophils 0.2 10^3/uL 0-0.6 Abs Basophils 0 10^3/uL 0-0.2 Abs Nucleated RBC 0 10^3/uL Granulocyte % 66.2 % 38-83 Lymphocyte % 19.4 % Low 25-47 Monocyte % 10.9 % High 1-9 Eosinophil % 3.0 % 0-6 Basophil % 0.5 % 0-2 Nucleated Red Blood Cells % 0 Laboratory test finding 05/21/2015 Erythrocyte Sed Rate 6 mm/Hr 0-40 Protein Electrophoresis 05/21/2015 Total Protein(Pep) 6.5 g/dL 6.3 - 7.9 Albumin 3.6 g/dL 3.4-4.7 Alpha-1 Globulin 0.2 g/dL 0.1-0.3 Alpha-2 Globulin 0.9 g/dL 0.6-1.0 Beta Globulin 0.8 g/dL 0.7-1.2 Gamma Globulin 1.0 g/dL 0.6-1.6 Albumin/Globulin Ratio 1.26 Impression See Comment 36 Laboratory test finding 05/21/2015 C Reactive Protein 1.33 mg/L < 5.00 37 Urine Microalbumin Random 03/20/2015 Ur Microalbumin (mg/L) 6.0 mg/L Urine Creatinine 197.72 mg/dL Urine Microalbumin/Creatinine 3.0 ug/mg <31 Laboratory test finding 03/20/2015 Hemoglobin A1c 6.5 5-7 CBC Auto Diff 02/21/2015 White Blood Count 7.9 10^3/uL 4.8-10.8 Red Blood Count 4.67 10^6/uL 4.0-5.4 Hemoglobin 14.9 g/dL 14.0-18.0 Hematocrit 45 % 42-52 Mean Corpuscular Volume 96 fL High 80-94 Mean Corpuscular Hemoglobin 32 pg High 27-31 Mean Corpuscular HGB Conc 33 g/dL 31-36 Red Cell Distribution Width 12 % 10.5-15 Platelet Count 160 10^3/uL 150-450 Mean Platelet Volume 8 um3 7.4-10.4 Abs Neutrophils 5.3 10^3/uL 1.5-7.7 Abs Lymphocytes 1.4 10^3/uL 1.0-4.8 Abs Monocytes 0.8 10^3/uL 0-0.8 Abs Eosinophils 0.2 10^3/uL 0-0.6 Abs Basophils 0.1 10^3/uL 0-0.2 Abs Nucleated RBC 0.01 10^3/uL Granulocyte % 67.8 % 38-83 Lymphocyte % 17.5 % Low 25-47 Monocyte % 10.3 % High 1-9 Eosinophil % 3.1 % 0-6 Basophil % 1.3 % 0-2 Nucleated Red Blood Cells % 0.1 Laboratory test finding 02/21/2015 Lactic Acid 1.1 mmol/L 0.5-2.2 Comp Metabolic Panel 02/21/2015 Sodium 139 mmol/L 133-145 Potassium 3.8 mmol/L 3.5-5.0 Chloride 107 mmol/L 101-111 Co2 Carbon Dioxide 27 mmol/L 22-32 Anion Gap 5 mmol/L 2-11 Glucose 106 mg/dL High 70-100 Blood Urea Nitrogen 17 mg/dL 6-24 Creatinine 1.13 mg/dL 0.67-1.17 BUN/Creatinine Ratio 15.0 8-20 Calcium 8.9 mg/dL 8.6-10.3 Total Protein 6.0 g/dL Low 6.4-8.9 Albumin 3.9 g/dL 3.2-5.2 Globulin 2.1 g/dL 2-4 Albumin/Globulin Ratio 1.9 1-3 Total Bilirubin 0.50 mg/dL 0.2-1.0 Alkaline Phosphatase 83 U/L 34-104 Alt 20 U/L 7-52 Ast 17 U/L 13-39 Egfr Non- 64.7 >60 Egfr 83.2 >60 38 Laboratory test finding 02/21/2015 Lipase 30 U/L 11.0-82.0 Troponin-I (TnI) 0.00 ng/mL <0.03 39 Laboratory test finding 09/25/2014 PSA Diagnostic 1.085 ng/mL 0-4.0 40 Basic Metabolic Panel 08/14/2014 Sodium 140 mmol/L 133-145 Potassium 4.2 mmol/L 3.5-5.0 Chloride 105 mmol/L 101-111 Co2 Carbon Dioxide 32 mmol/L 22-32 Anion Gap 3 mmol/L 2-11 Glucose 114 mg/dL High 70-100 Blood Urea Nitrogen 19 mg/dL 6-24 Creatinine 1.05 mg/dL 0.67-1.17 BUN/Creatinine Ratio 18.1 8-20 Calcium 9.2 mg/dL 8.6-10.3 Egfr Non- 70.7 >60 Egfr 90.9 >60 41 Lipid Profile (Trig/Chol/HDL) 08/13/2014 Triglycerides 75 mg/dL 42, 43 Cholesterol 145 mg/dL 42, 44 HDL Cholesterol 43.3 mg/dL 42, 45 LDL Cholesterol 87 mg/dL 42, 46 Comp Metabolic Panel 08/13/2014 Sodium 137 mmol/L 133-145 42 Potassium TNP mmol/L 3.5-5.0 42 Chloride 105 mmol/L 101-111 42 Co2 Carbon Dioxide 29 mmol/L 22-32 42 Anion Gap TNP mmol/L 2-11 42 Glucose 121 mg/dL High 70-100 42 Blood Urea Nitrogen 20 mg/dL 6-24 42 Creatinine 1.12 mg/dL 0.67-1.17 42 BUN/Creatinine Ratio 17.9 8-20 42 Calcium 9.0 mg/dL 8.6-10.3 42 Total Protein 6.0 g/dL Low 6.4-8.9 42 Albumin 4.2 g/dL 3.2-5.2 42 Globulin 1.8 g/dL Low 2-4 42 Albumin/Globulin Ratio 2.3 1-3 42 Total Bilirubin 0.80 mg/dL 0.2-1.0 42 Alkaline Phosphatase 75 U/L 34-104 42 Alt 30 U/L 7-52 42 Ast TNP U/L 13-39 42, 47 Egfr Non- 65.6 >60 42 Egfr 84.4 >60 42, 48 Laboratory test 08/13/2014 Hemoglobin A1c 6.7 % High Less than 42, 49 finding 6.0 Laboratory test 02/15/2014 Hemoglobin A1c 5.9 5-7 finding Urine Microalbumin 02/15/2014 Ur Microalbumin 5.0 mg/dL <30 50 Random (mg/L) Urine Creatinine 128.88 mg/dL Urine Microalbumin/Creatinine 3.8 Less Than 31 CBC Auto Diff 11/12/2013 White Blood Count 6.6 10^3/uL 4.8-10.8 Red Blood Count 4.56 10^6/uL 4.0-5.4 Hemoglobin 15.3 g/dL 14.0-18.0 Hematocrit 43 % 42-52 Mean Corpuscular Volume 95 fL High 80-94 Mean Corpuscular Hemoglobin 33 pg High 27-31 Mean Corpuscular HGB Conc 35 g/dL 31-36 Red Cell Distribution Width 12 % 10.5-15 Platelet Count 169 10^3/uL 150-450 Mean Platelet Volume 9 um3 7.4-10.4 Abs Neutrophils 4.8 10^3/uL 1.5-7.7 Abs Lymphocytes 1.0 10^3/uL 1.0-4.8 Abs Monocytes 0.6 10^3/uL 0-0.8 Abs Eosinophils 0.2 10^3/uL 0-0.6 Abs Basophils 0 10^3/uL 0-0.2 Abs Nucleated RBC 0.01 10^3/uL Granulocyte % 72.6 % 38-83 Lymphocyte % 15.8 % Low 25-47 Monocyte % 8.5 % 1-9 Eosinophil % 2.6 % 0-6 Basophil % 0.5 % 0-2 Nucleated Red Blood Cells % 0.1 Comp Metabolic Panel 11/12/2013 Sodium 140 mmol/L 133-145 Potassium 3.9 mmol/L 3.7-5.6 Chloride 106 mmol/L 101-111 Co2 Carbon Dioxide 29 mmol/L 22-32 Anion Gap 5 mmol/L 2-11 Glucose 113 mg/dL High 70-100 Blood Urea Nitrogen 19 mg/dL 6-24 Creatinine 1.02 mg/dL 0.67-1.17 BUN/Creatinine Ratio 18.6 8-20 Calcium 9.0 mg/dL 8.6-10.3 Total Protein 5.9 g/dL Low 6.4-8.9 Albumin 4.3 g/dL 3.2-5.2 Globulin 1.6 g/dL Low 2-4 Albumin/Globulin Ratio 2.7 1-3 Total Bilirubin 0.60 mg/dL 0.2-1.0 Alkaline Phosphatase 79 U/L 34-104 Alt 19 U/L 7-52 Ast 17 U/L 13-39 Egfr Non- 73.1 >60 Egfr 94.0 >60 51 Celiac Panel 11/12/2013 Immunoglobulin A 138 mg/dL 61 - 356 Tissue Transglutaminase IgA Ab <1.2 U/mL 52 Celiac Interpretation See Comment 53 Laboratory test 09/26/2013 PSA Diagnostic 1.343 ng/mL 0-4.0 54 finding Laboratory test 08/13/2013 Hepatitis C Antibody Nonreactive Nonreactive finding Laboratory test 08/07/2013 Hemoglobin A1c 5.8 % Less than 6.0 55 finding Lipid Profile 08/07/2013 Triglycerides 53 mg/dL 40-200 (Trig/Chol/HDL) Cholesterol 134 mg/dL Less than 200 HDL Cholesterol 49 mg/dL 40-60 56 Cholesterol/HDL Ratio 2.7 Average 1-4.44 LDL Cholesterol 74.4 Less Than 100 57 Comp Metabolic Panel 08/07/2013 Sodium 139 mmol/L 133-145 Potassium 3.9 mmol/L 3.5-5.0 Chloride 105 mmol/L 101-111 Co2 Carbon Dioxide 30.0 mmol/L 22-32 Anion Gap 4.0 mmol/L 2-11 Glucose 87 mg/dL 70-100 Blood Urea Nitrogen 21 mg/dL 6-24 Creatinine 1.10 mg/dL 0.50-1.40 BUN/Creatinine Ratio 19.1 8-20 Calcium 9.0 mg/dL 8.1-9.9 Total Protein 5.5 g/dL Low 6.2-8.1 Albumin 3.8 g/dL 3.2-5.2 Globulin 1.7 g/dL Low 2-4 Albumin/Globulin Ratio 2.2 1-3 Total Bilirubin 0.8 mg/dL 0.4-1.5 Alkaline Phosphatase 80 U/L 30-110 Alt 25 U/L 14-54 Ast 23 U/L 12-42 Egfr Non- 67.2 >60 Egfr 86.4 >60 58 Laboratory test finding 02/08/2013 Hemoglobin A1c 5.8 5-7 Comp Metabolic Panel 02/05/2013 Sodium 137 mmol/L 133-145 Potassium 4.5 mmol/L 3.5-5.0 Chloride 106 mmol/L 101-111 Co2 Carbon Dioxide 23.0 mmol/L 22-32 Anion Gap 8.0 mmol/L 2-11 Glucose 108 mg/dL High 70-100 Blood Urea Nitrogen 21 mg/dL 6-24 Creatinine 1.10 mg/dL 0.50-1.40 BUN/Creatinine Ratio 19.1 8-20 Calcium 9.1 mg/dL 8.1-9.9 Total Protein 5.3 g/dL Low 6.2-8.1 Albumin 4.0 g/dL 3.2-5.2 Globulin 1.3 g/dL Low 2-4 Albumin/Globulin Ratio 3.1 High 1-3 Total Bilirubin 0.6 mg/dL 0.4-1.5 Alkaline Phosphatase 78 U/L 30-110 Alt 39 U/L 14-54 Ast 31 U/L 12-42 Egfr Non- 67.2 >60 Egfr 86.4 >60 59 Urine Microalbumin Random 02/05/2013 Ur Microalbumin (mg/L) 3.0 mg/L 60 Urine Creatinine 89.1 mg/dL Urine Microalbumin/Creatinine 3.4 Less Than 31 Lipid Profile (Trig/Chol/HDL) 09/06/2012 Triglycerides 49 mg/dL 40-200 Cholesterol 137 mg/dL Less than 200 HDL Cholesterol 51 mg/dL 40-60 61 Cholesterol/HDL Ratio 2.7 Average 1-4.44 LDL Cholesterol 76.2 mg/dL Less Than 100 62 Laboratory test finding 09/06/2012 PSA Diagnostic 0.96 ng/mL 0-4.0 63 Order 09/05/2012 O2 sat 99 Laboratory test finding 07/26/2012 Vitamin B12 388 pg/mL 180-914 TSH (Thyroid Stimulating Horm) 1.77 miu/mL 0.34-5.60 Laboratory test finding 07/26/2012 Erythrocyte Sed Rate 10 mm/Hr 0-20 Laboratory test finding 07/26/2012 Cindy (Anti-Nuclear AB) Negative Negative Screen Protein Electrophoresis 07/26/2012 Albumin (Pep) 3.17 g/dL 3.0-4.35 Serum Alpha 1 Globulins 0.22 g/dL 0.09-0.33 Alpha 2 Globulin 0.86 g/dL 0.59-1.18 Beta Globulin 0.55 g/dL Low 0.68-1.02 Gamma Globulin 0.90 g/dL 0.76-1.60 Albumin % (Pep) 55.6 % 46-63 Alpha 1 Globulins % 3.9 % 1.2-5.3 Alpha 2 Globulin % 15.1 % 9-17 Beta Globulin % 9.6 % Low 10-16 Gamma Globulin % 15.8 % 12-22 Albumin/Globulin Ratio 1.3 0.9-2.0 Total Protein (Pep) 5.7 g/dL Low 6.2-8.1 Spep Comments (SEE NOTE) 64 Syphilis Screen 07/26/2012 Syphilis IgG Nonreactive Nonreactive 65 RPR TNP Nonreactive RPR Titer TNP Pediatric/Maternal NO Laboratory test finding 02/29/2012 Hemoglobin A1c 6.7 % High Less Than 6.0 66 Urine Microalbumin 02/29/2012 Microalbumin (MG/L) 5.0 mg/L Random Urine Creatinine 235.8 mg/dL Sameer Alb/Creatinine Ratio 2.1 UG/MG Less Than 30 67 Lipid Profile (Trig/Chol/HDL) 02/29/2012 Triglyceride 93 mg/dL 40-200 Cholesterol 148 mg/dL Less Than 200 68 High Density Lipoprotein 41 mg/dL 40-60 69 Cholesterol/HDL Ratio 3.61 AVERAGE 1-4.97 Low Density Lipoprotein 88 mg/dL Less Than 100 70 Comp Metabolic Panel 02/29/2012 Sodium 138 mmol/L 135-145 Potassium 4.2 mmol/L 3.5-5.0 Chloride 106 mmol/L 101-111 Co2 (Carbon Dioxide) 29.0 mmol/L 22-32 Anion Gap 3.0 mmol/L 2-11 71 Glucose 114 mg/dL High 70-100 BUN 17 mg/dL 6-24 Creatinine 1.1 mg/dL 0.50-1.40 One Over Creatinine 0.90 BUN/Creatinine Ratio 15.5 8-20 Calcium 9.2 mg/dL 8.1-9.9 Total Protein 5.8 GM/DL Low 6.2-8.1 Albumin 3.8 GM/DL 3.2-5.2 Globulin 2.0 GM/DL 2-4 Albumin/Globulin Ratio 1.9 1-3 Bilirubin Total 1.0 mg/dL 0.4-1.5 72 Alkaline Phosphatase 89 U/L 39-117 Alt (SGPT) 43 U/L 17-63 Ast (Sgot) 30 U/L 12-42 eGFR Non- 67.4 > 60 eGFR 86.7 > 60 73 Lipid Profile (Trig/Chol/HDL) 11/17/2011 Triglyceride 79 mg/dL 40-200 Cholesterol 173 mg/dL Less Than 200 74 High Density Lipoprotein 45 mg/dL 40-60 75 Cholesterol/HDL Ratio 3.84 AVERAGE 1-4.97 Low Density Lipoprotein 112 mg/dL High Less Than 100 76 Laboratory test finding 11/17/2011 Hemoglobin A1c 6.8 % High Less Than 6.0 77 Comp Metabolic Panel 11/17/2011 Sodium 136 mmol/L 135-145 Potassium 4.0 mmol/L 3.5-5.0 Chloride 105 mmol/L 101-111 Co2 (Carbon Dioxide) 27.0 mmol/L 22-32 Anion Gap 4.0 mmol/L 2-11 78 Glucose 109 mg/dL High 70-100 BUN 19 mg/dL 6-24 Creatinine 1.1 mg/dL 0.50-1.40 One Over Creatinine 0.90 BUN/Creatinine Ratio 17.3 8-20 Calcium 8.9 mg/dL 8.1-9.9 Total Protein 5.9 GM/DL Low 6.2-8.1 Albumin 3.9 GM/DL 3.2-5.2 Globulin 2.0 GM/DL 2-4 Albumin/Globulin Ratio 2.0 1-3 Bilirubin Total 1.3 mg/dL 0.4-1.5 79 Alkaline Phosphatase 95 U/L 39-117 Alt (SGPT) 37 U/L 17-63 Ast (Sgot) 29 U/L 12-42 eGFR Non- 67.4 > 60 eGFR 86.7 > 60 80 Laboratory test finding 09/01/2011 PSA,Diagnostic 0.91 NG/ML 0-4 81 Urinalysis 04/16/2011 Ua Color YELLOW Yellow Appearance-Urine CLEAR Clear Specific [place]-Ur 1.020 1.010-1.030 Esterase-Urine NEGATIVE Negative Nitrite NEGATIVE Negative Vntjxvoyarle-Ds-GLE NEGATIVE Negative Protein-Urine NEGATIVE Negative PH-Urine 6.5 5-9 Blood-Urine NEGATIVE Negative Ketones-Urine NEGATIVE Negative Bilirubin-Ur NEGATIVE Negative Glucose-Urine 1+ Negative Laboratory test finding 04/12/2011 Hemoglobin A1c 5.9 % Less Than 6.0 82 Comp Metabolic Panel 04/12/2011 Sodium 141 mmol/L 135-145 Potassium 4.1 mmol/L 3.5-5.0 Chloride 108 mmol/L 101-111 Co2 (Carbon Dioxide) 27.0 mmol/L 22-32 Anion Gap 6.0 mmol/L 2-11 83 Glucose 111 mg/dL High 70-100 BUN 22 mg/dL 6-24 Creatinine 1.1 mg/dL 0.50-1.40 One Over Creatinine 0.90 BUN/Creatinine Ratio 20.0 8-20 Calcium 9.0 mg/dL 8.1-9.9 Total Protein 5.8 GM/DL Low 6.2-8.1 Albumin 4.0 GM/DL 3.2-5.2 Globulin 1.8 GM/DL Low 2-4 Albumin/Globulin Ratio 2.2 1-3 Bilirubin Total 1.2 mg/dL 0.4-1.5 84 Alkaline Phosphatase 92 U/L 39-117 Alt (SGPT) 23 U/L 17-63 Ast (Sgot) 24 U/L 12-42 eGFR Non- 67.6 > 60 eGFR 86.9 > 60 85 Urine Microalbumin Random 04/12/2011 Microalbumin (MG/L) 3.0 mg/L Urine Creatinine 146.69 mg/dL Sameer Alb/Creatinine Ratio 2.0 UG/MG Less Than 30 86 Laboratory test finding 02/02/2011 PSA,Diagnostic 1.23 NG/ML 0-4 87 Laboratory test finding 11/05/2010 PSA,Diagnostic 1.53 NG/ML 0-4 88 Manual Differential 09/17/2010 Polysegmented Neutrophil 81 % 38-83 Band Neutrophil 3 % 0-8 Lymphocyte 9 % Low 25-47 Monocyte 4 % 0-13 Eosinophil 2 % 0-6 Atypical Lymph 1 % 0-6 Absolute Neutrophil Count 8.2 Anisocytosis SLIGHT Comp Metabolic Panel 09/17/2010 Sodium 137 mmol/L 135-145 Potassium 4.2 mmol/L 3.5-5.0 Chloride 103 mmol/L 101-111 Co2 (Carbon Dioxide) 27.0 mmol/L 22-32 Anion Gap 7.0 mmol/L 2-11 89 Glucose 222 mg/dL High 70-100 BUN 14 mg/dL 6-24 Creatinine 1.20 mg/dL 0.50-1.40 One Over Creatinine 0.80 BUN/Creatinine Ratio 11.7 8-20 Calcium 8.6 mg/dL 8.1-9.9 Total Protein 5.6 GM/DL Low 6.2-8.1 Albumin 3.2 GM/DL 3.2-5.2 Globulin 2.4 GM/DL 2-4 Albumin/Globulin Ratio 1.3 1-3 Bilirubin Total 0.7 mg/dL 0.4-1.5 90 Alkaline Phosphatase 74 U/L 39-117 Alt (SGPT) 60 U/L 17-63 Ast (Sgot) 39 U/L 12-42 eGFR Non- 61.1 > 60 eGFR 78.6 > 60 91 CBC With Electronic Diff 09/17/2010 White Blood Count 9.8 CUMM 4.8-10.8 Red Cell Count 4.06 CUMM Low 4.6-6.2 Hemoglobin 13.1 g/dL Low 14.0-18.0 Hematocrit 39 % Low 42-52 Mean Corpuscular Volume 95 um3 High 80-94 Mean Corpuscular Hemoglob 32 pg High 27-31 Mean Corpuscular HGB Cone 34 g/dL 32-36 Redcell Distribution WDTH 12 % 10.5-15 Platelet Count 214 CUMM 150-450 Mean Platelet Volume 7.7 um3 7.4-10.4 92 Comp Metabolic Panel 08/28/2010 Sodium 141 mmol/L 135-145 Potassium 4.1 mmol/L 3.5-5.0 Chloride 105 mmol/L 101-111 Co2 (Carbon Dioxide) 29.0 mmol/L 22-32 Anion Gap 7.0 mmol/L 2-11 93 Glucose 98 mg/dL 70-100 BUN 23 mg/dL 6-24 Creatinine 1.00 mg/dL 0.50-1.40 One Over Creatinine 1.00 BUN/Creatinine Ratio 23.0 High 8-20 Calcium 9.3 mg/dL 8.1-9.9 Total Protein 5.9 GM/DL Low 6.2-8.1 Albumin 4.0 GM/DL 3.2-5.2 Globulin 1.9 GM/DL Low 2-4 Albumin/Globulin Ratio 2.1 1-3 Bilirubin Total 1.1 mg/dL 0.4-1.5 94 Alkaline Phosphatase 86 U/L 39-117 Alt (SGPT) 31 U/L 17-63 Ast (Sgot) 26 U/L 12-42 eGFR Non- 75.7 > 60 eGFR 97.4 > 60 95 Lipid Profile (Trig/Chol/HDL) 08/28/2010 Triglyceride 60 mg/dL 40-200 Cholesterol 144 mg/dL Less Than 200 96 High Density Lipoprotein 42 mg/dL 40-60 97 Cholesterol/HDL Ratio 3.43 AVERAGE 1-4.97 Low Density Lipoprotein 90 mg/dL Less Than 100 98 Laboratory test finding 08/28/2010 Hemoglobin A1c 6.7 % High Less Than 6.0 99 Comp Metabolic Panel 03/02/2010 Sodium 140 mmol/L 135-145 Potassium 4.2 mmol/L 3.5-5.0 Chloride 104 mmol/L 101-111 Co2 (Carbon Dioxide) 29.0 mmol/L 22-32 Anion Gap 7.0 mmol/L 2-11 100 Glucose 75 mg/dL 70-100 101 BUN 15 mg/dL 6-24 Creatinine 1.00 mg/dL 0.50-1.40 One Over Creatinine 1.00 BUN/Creatinine Ratio 15.0 8-20 Calcium 9.4 mg/dL 8.1-9.9 102 Total Protein 6.4 GM/DL 6.2-8.1 Albumin 4.1 GM/DL 3.2-5.2 Globulin 2.3 GM/DL 2-4 Albumin/Globulin Ratio 1.8 1-3 Bilirubin Total 0.8 mg/dL 0.4-1.5 103 Alkaline Phosphatase 94 U/L 39-117 Alt (SGPT) 31 U/L 17-63 Ast (Sgot) 25 U/L 12-42 eGFR Non- 80.5 > 60 eGFR 97.4 > 60 104 Laboratory test finding 03/02/2010 Hemoglobin A1c 6.4 % High Less Than 6.0 105 Laboratory test finding 02/06/2010 PSA,Diagnostic 0.88 NG/ML 0-4 106 1 Serum levels of PSA measured using the [employer] [place] DXI Hybritech immunoassay should not be interpreted as absolute evidence of the presence or absence of disease. The PSA value should be used in conjunction with other pertinent clinical diagnostic procedures. The values obtained with different assay methods or kits cannot be used interchangeably. 2 FASTING 10 HOUR DUE IN SPRING PRIOR TO NEXT APPOINTMENT 3 Desirable: <150 Borderline High: 150-199 High: 200-499 Very High: >500 4 Desirable: <200 Borderline High: 200-239 High: >239 5 Low: <40 Desirable: 40-60 High: >60 6 Desirable: <100 Near Optimal: 100-129 Borderline High: 130-159 High: 160-189 Very High: >189 7 Because ethnic data is not always readily available, this report includes an eGFR for both -Americans and non- Americans. The National Kidney Disease Education Program (NKDEP) does not endorse the use of the MDRD equation for patients that are not between the ages of 18 and 70, are , have extremes of body size, muscle mass, or nutritional status, or are non- or non-. According to the National Kidney Foundation, irrespective of diagnosis, the stage of the disease is based on the level of kidney function: Stage Description GFR(mL/min/1.73 m(2)) 1 Kidney damage with normal or decreased GFR 90 2 Kidney damage with mild decrease in GFR 60-89 3 Moderate decrease in GFR 30-59 4 Severe decrease in GFR 15-29 5 Kidney failure <15 (or dialysis) 8 Therapeutic target for the treatment of diabetes mellitus patients is <7% HBA1C, and in selective patients <6.0%. Please refer to [place] [employer] diabetic care guidelines for further information. 9 Unable to calculate due to low microalbumin 10 Team Leader Surgery: [id number] 11 Because ethnic data is not always readily available, this report includes an eGFR for both -Americans and non- Americans. The National Kidney Disease Education Program (NKDEP) does not endorse the use of the MDRD equation for patients that are not between the ages of 18 and 70, are , have extremes of body size, muscle mass, or nutritional status, or are non- or non-. According to the National Kidney Foundation, irrespective of diagnosis, the stage of the disease is based on the level of kidney function: Stage Description GFR(mL/min/1.73 m(2)) 1 Kidney damage with normal or decreased GFR 90 2 Kidney damage with mild decrease in GFR 60-89 3 Moderate decrease in GFR 30-59 4 Severe decrease in GFR 15-29 5 Kidney failure <15 (or dialysis) 12 AA 08/03/17 09:15 13 SEE RESULT BELOW Name: ANN-MARIE RAO : [address]: Dell Guerrero MD Acct: [id number] Unit: [id number] AGE: 71 Location: [facility] Re08/01/17 SEX: M Status: REG REF SPEC: [id number] YARED: 08/01/17-1029 [facility] DR: Dell Guerrero MD REQ: [id number] RECD: 08/01/17 STATUS: CAMPOS CASTELL[facility] DR: Thi Pan MD _ SOURCE: URINE SPDESC: ORDERED: Urine Culture COMMENTS: 08/03/17 09:15 QUERIES: Urine Source: Random Procedure Result Reported Site Urine Culture Final 08/02/17- 0843 ML No Growth (<1,000 CFU/mL) * ML - MAIN LAB (PSC1) . END OF REPORT * ML=Testing performed at Main Lab DEPARTMENT OF PATHOLOGY, [address] [place] [address] Edison Perez M.D. Director [facility] # [id number] 14 Because ethnic data is not always readily available, this report includes an eGFR for both -Americans and non- Americans. The National Kidney Disease Education Program (NKDEP) does not endorse the use of the MDRD equation for patients that are not between the ages of 18 and 70, are , have extremes of body size, muscle mass, or nutritional status, or are non- or non-. According to the National Kidney Foundation, irrespective of diagnosis, the stage of the disease is based on the level of kidney function: Stage Description GFR(mL/min/1.73 m(2)) 1 Kidney damage with normal or decreased GFR 90 2 Kidney damage with mild decrease in GFR 60-89 3 Moderate decrease in GFR 30-59 4 Severe decrease in GFR 15-29 5 Kidney failure <15 (or dialysis) 15 Therapeutic target for the treatment of diabetes Mellitus patients is <7% HBA1C, and in selective patients <6.0%.Please refer to [place] [employer] Diabetic care guidelines for further information. 16 Acute inflammation: >10.00 17 CC: [place] 18 Because ethnic data is not always readily available, this report includes an eGFR for both -Americans and non- Americans. The National Kidney Disease Education Program (NKDEP) does not endorse the use of the MDRD equation for patients that are not between the ages of 18 and 70, are , have extremes of body size, muscle mass, or nutritional status, or are non- or non-. According to the National Kidney Foundation, irrespective of diagnosis, the stage of the disease is based on the level of kidney function: Stage Description GFR(mL/min/1.73 m(2)) 1 Kidney damage with normal or decreased GFR 90 2 Kidney damage with mild decrease in GFR 60-89 3 Moderate decrease in GFR 30-59 4 Severe decrease in GFR 15-29 5 Kidney failure <15 (or dialysis) 19 Serum levels of PSA measured using the [employer] DXI Hybritech immunoassay should not be interpreted as absolute evidence of the presence or absence of disease. The PSA value should be used in conjunction with other pertinent clinical diagnostic procedures. The values obtained with different assay methods or kits cannot be used interchangeably. 20 Serum levels of PSA measured using the [employer] [place] DXI Hybritech immunoassay should not be interpreted as absolute evidence of the presence or absence of disease. The PSA value should be used in conjunction with other pertinent clinical diagnostic procedures. The values obtained with different assay methods or kits cannot be used interchangeably. 21 Desirable <150 Borderline high 150-199 High 200-499 Very High >500 22 Desirable <200 Borderline high 200-239 High >239 23 Low <40 Desirable: 40-60 High: >60 24 Desirable: <100 mg/dL Near Optimal: 100-129 mg/dL Borderline High: 130-159 mg/dL High: 160-189 mg/dL Very High: >189 mg/dL 25 Because ethnic data is not always readily available, this report includes an eGFR for both -Americans and non- Americans. The National Kidney Disease Education Program (NKDEP) does not endorse the use of the MDRD equation for patients that are not between the ages of 18 and 70, are , have extremes of body size, muscle mass, or nutritional status, or are non- or non-. According to the National Kidney Foundation, irrespective of diagnosis, the stage of the disease is based on the level of kidney function: Stage Description GFR(mL/min/1.73 m(2)) 1 Kidney damage with normal or decreased GFR 90 2 Kidney damage with mild decrease in GFR 60-89 3 Moderate decrease in GFR 30-59 4 Severe decrease in GFR 15-29 5 Kidney failure <15 (or dialysis) 26 Therapeutic target for the treatment of diabetes Mellitus patients is <7% HBA1C, and in selective patients <6.0%.Please refer to [place] [employer] Diabetic care guidelines for further information. 27 Unable to calculate due to low microalbumin 28 Team Leader Surgery: [place] AUG 22 Desirable <150 Borderline high 150-199 High 200-499 Very High >500 30 Desirable <200 Borderline high 200-239 High >239 31 Low <40 Desirable: 40-60 High: >60 32 Desirable: <100 mg/dL Near Optimal: 100-129 mg/dL Borderline High: 130-159 mg/dL High: 160-189 mg/dL Very High: >189 mg/dL 33 Because ethnic data is not always readily available, this report includes an eGFR for both -Americans and non- Americans. The National Kidney Disease Education Program (NKDEP) does not endorse the use of the MDRD equation for patients that are not between the ages of 18 and 70, are , have extremes of body size, muscle mass, or nutritional status, or are non- or non-. According to the National Kidney Foundation, irrespective of diagnosis, the stage of the disease is based on the level of kidney function: Stage Description GFR(mL/min/1.73 m(2)) 1 Kidney damage with normal or decreased GFR 90 2 Kidney damage with mild decrease in GFR 60-89 3 Moderate decrease in GFR 30-59 4 Severe decrease in GFR 15-29 5 Kidney failure <15 (or dialysis) 34 Therapeutic target for the treatment of diabetes Mellitus patients is <7% HBA1C, and in selective patients <6.0%.Please refer to [place] [employer] Diabetic care guidelines for further information. 35 Serum levels of PSA measured using the GELI DXI Hybritech immunoassay should not be interpreted as absolute evidence of the presence or absence of disease. The PSA value should be used in conjunction with other pertinent clinical diagnostic procedures. The values obtained with different assay methods or kits cannot be used interchangeably. 36 RESULT: No apparent monoclonal protein on serum electrophoresis. Test Performed by: [place] [address] Truck Shop Supervisor: Dell Hughes II, M.D., Ph.D. 37 Acute inflammation: >10.00 38 Because ethnic data is not always readily available, this report includes an eGFR for both -Americans and non- Americans. The National Kidney Disease Education Program (NKDEP) does not endorse the use of the MDRD equation for patients that are not between the ages of 18 and 70, are , have extremes of body size, muscle mass, or nutritional status, or are non- or non-. According to the National Kidney Foundation, irrespective of diagnosis, the stage of the disease is based on the level of kidney function: Stage Description GFR(mL/min/1.73 m(2)) 1 Kidney damage with normal or decreased GFR 90 2 Kidney damage with mild decrease in GFR 60-89 3 Moderate decrease in GFR 30-59 4 Severe decrease in GFR 15-29 5 Kidney failure <15 (or dialysis) 39 Reference Range and Interpretation: TnI (ng/mL) Interpretation Less Than 0.03 ng/mL Not supportive of diagnosis of RI 0.03 - 0.50 ng/mL Indeterminate: suggest serial studies if clinically indicated. Greater than 0.5 ng/mL Consistent with diagnosis of RI 40 Serum levels of PSA measured using the [employer] DXI Hybritech immunoassay should not be interpreted as absolute evidence of the presence or absence of disease. The PSA value should be used in conjunction with other pertinent clinical diagnostic procedures. The values obtained with different assay methods or kits cannot be used interchangeably. 41 Because ethnic data is not always readily available, this report includes an eGFR for both -Americans and non- Americans. The National Kidney Disease Education Program (NKDEP) does not endorse the use of the MDRD equation for patients that are not between the ages of 18 and 70, are , have extremes of body size, muscle mass, or nutritional status, or are non- or non-. According to the National Kidney Foundation, irrespective of diagnosis, the stage of the disease is based on the level of kidney function: Stage Description GFR(mL/min/1.73 m(2)) 1 Kidney damage with normal or decreased GFR 90 2 Kidney damage with mild decrease in GFR 60-89 3 Moderate decrease in GFR 30-59 4 Severe decrease in GFR 15-29 5 Kidney failure <15 (or dialysis) 42 FASTING~DUE IN JULY 43 Desirable <150 Borderline high 150-199 High 200-499 Very High >500 44 Desirable <200 Borderline high 200-239 High >239 45 Low <40 Desirable: 40-60 High: >60 46 Desirable <100 Near Optimal 100-129 Borderline high 130-159 High 160-189 Very High >189 47 SPECIMEN GROSSLY HEMOLYZED 48 Because ethnic data is not always readily available, this report includes an eGFR for both -Americans and non- Americans. The National Kidney Disease Education Program (NKDEP) does not endorse the use of the MDRD equation for patients that are not between the ages of 18 and 70, are , have extremes of body size, muscle mass, or nutritional status, or are non- or non-. According to the National Kidney Foundation, irrespective of diagnosis, the stage of the disease is based on the level of kidney function: Stage Description GFR(mL/min/1.73 m(2)) 1 Kidney damage with normal or decreased GFR 90 2 Kidney damage with mild decrease in GFR 60-89 3 Moderate decrease in GFR 30-59 4 Severe decrease in GFR 15-29 5 Kidney failure <15 (or dialysis) 49 Therapeutic target for the treatment of diabetes Mellitus patients is <7% HBA1C, and in selective patients <6.0%.Please refer to [place] [employer] Diabetic care guidelines for further information. 50 Microalbuminuria in a random sample is defined as: Microalbumin/Creatinine ratio of 30-299 ug/mg. 51 Because ethnic data is not always readily available, this report includes an eGFR for both -Americans and non- Americans. The National Kidney Disease Education Program (NKDEP) does not endorse the use of the MDRD equation for patients that are not between the ages of 18 and 70, are , have extremes of body size, muscle mass, or nutritional status, or are non- or non-. According to the National Kidney Foundation, irrespective of diagnosis, the stage of the disease is based on the level of kidney function: Stage Description GFR(mL/min/1.73 m(2)) 1 Kidney damage with normal or decreased GFR 90 2 Kidney damage with mild decrease in GFR 60-89 3 Moderate decrease in GFR 30-59 4 Severe decrease in GFR 15-29 5 Kidney failure <15 (or dialysis) 52 -- REFERENCE VALUE -- <4.0 (Negative) Test Performed by: [place] [address] Truck Shop Supervisor: Reginald Jurado III, M.D. 53 Negative serology. Celiac disease unlikely. However, approximately 10% of patients with celiac disease are seronegative. Also, patients who are already adhering to a gluten-free diet may be seronegative. If celiac disease is highly clinically suspected, consider HLA-DQ typing. Test Performed by: [place] [address] [employer] Shop Supervisor: Reginald Jurado III, M.D. 54 Serum levels of PSA measured using the Iesha [employer] DXI Hybritech immunoassay should not be interpreted as absolute evidence of the presence or absence of disease. The PSA value should be used in conjunction with other pertinent clinical diagnostic procedures. The values obtained with different assay methods or kits cannot be used interchangeably. 55 Therapeutic target for the treatment of diabetes Mellitus patients is <7% HBA1C, and in selective patients <6.0%.Please refer to [place] [employer] Diabetic care guidelines for further information. 56 HDL Interpretation: Undesirable: High Risk: Less than 40 mg/dL Desirable: Low Risk: Greater than 60 mg/dL 57 LDL Interpretation: Low Risk Optimal Level: LDL Less than 100 mg/dL Near or Above Optimal: LDL 100-129 mg/dL Borderline High Risk: LDL 130-159 mg/dL High Risk: LDL 160-189 mg/dL Very High Risk: LDL Greater than 189 mg/dL 58 Because ethnic data is not always readily available, this report includes an eGFR for both -Americans and non- Americans. The National Kidney Disease Education Program (NKDEP) does not endorse the use of the MDRD equation for patients that are not between the ages of 18 and 70, are , have extremes of body size, muscle mass, or nutritional status, or are non- or non-. According to the National Kidney Foundation, irrespective of diagnosis, the stage of the disease is based on the level of kidney function: Stage Description GFR(mL/min/1.73 m(2)) 1 Kidney damage with normal or decreased GFR 90 2 Kidney damage with mild decrease in GFR 60-89 3 Moderate decrease in GFR 30-59 4 Severe decrease in GFR 15-29 5 Kidney failure <15 (or dialysis) 59 Because ethnic data is not always readily available, this report includes an eGFR for both -Americans and non- Americans. The National Kidney Disease Education Program (NKDEP) does not endorse the use of the MDRD equation for patients that are not between the ages of 18 and 70, are , have extremes of body size, muscle mass, or nutritional status, or are non- or non-. According to the National Kidney Foundation, irrespective of diagnosis, the stage of the disease is based on the level of kidney function: Stage Description GFR(mL/min/1.73 m(2)) 1 Kidney damage with normal or decreased GFR 90 2 Kidney damage with mild decrease in GFR 60-89 3 Moderate decrease in GFR 30-59 4 Severe decrease in GFR 15-29 5 Kidney failure <15 (or dialysis) 60 Microalbuminuria in a random sample is defined as: Microalbumin/Creatinine ratio of 30-299 ug/mg. 61 HDL Interpretation: Undesirable: High Risk: Less than 40 MG/DL Desirable: Low Risk: Greater than 60 MG/DL 62 LDL Interpretation: Low Risk Optimal Level: LDL Less than 100 MG/DL Near or Above Optimal: LDL 100-129 MG/DL Borderline High Risk: LDL 130-159 MG/DL High Risk: LDL 160-189 MG/DL Very High Risk: LDL Greater than 189 MG/DL 63 Serum levels of PSA measured using the Iesha [employer] Product[employer] DXI Hybritech immunoassay should not be interpreted as absolute evidence of the presence or absence of disease. The PSA value should be used in conjunction with other pertinent clinical diagnostic procedures. The values obtained with different assay methods or kits cannot be used interchangeably. 64 DECREASED BETA GLOBULIN 65 Warning: A positive result is not useful for establishing a diagnosis of syphilis. In most situations, such a result may reflect a prior treated infection; a negative result can exclude a diagnosis of syphilis except for incubating or early primary disease. 66 THERAPEUTIC TARGET FOR THE TREATMENT OF DIABETES MELLITUS PATIENTS IS <7% HBA1C, AND IN SELECTIVE PATIENTS <6.0%. PLEASE REFER TO [place] [employer] DIABETIC CARE GUIDELINES FOR FURTHER INFORMATION. 67 MICROALBUMINURIA IN A RANDOM SAMPLE IS DEFINED : MICROALBUMIN/CREATININE RATIO OF 30-299 ug/mg. . 68 CHOLESTEROL INTERPRETATION: Desirable: Less than 200 MG/DL Borderline-High Risk: 200-239 MG/DL High-Risk: 240 MG/DL and over 69 HDL INTERPRETATION: Undesirable: High Risk: Less than 40 MG/DL Desirable: Low Risk: Greater than 60 MG/DL 70 LDL INTERPRETATION: Low Risk Optimal Level: LDL Less than 100 MG/DL Near or Above Optimal: LDL 100-129 MG/DL Borderline High Risk: LDL 130-159 MG/DL High Risk: LDL 160-189 MG/DL Very High Risk: LDL Greater than 189 MG/DL 71 Anion gap measurement may be of limited value in the presence of any alkalosis, especially in a combined acid base disorder. . 72 A metabolite of Naproxen, O-desmethylnaproxen, has been shown to interfere with the Jendrassik-Birnamwood method for measuring total bilirubin. Samples from patients who have taken Naproxen have shown spurious elevation in total bilirubin levels. 73 Because ethnic data is not always readily available, this report includes an eGFR for both -Americans and non- Americans. The National Kidney Disease Education Program (NKDEP) does not endorse the use of the MDRD equation for patients that are not between the ages of 18 and 70, are , have extremes of body size, muscle mass, or nutritional status, or are non- or non-. According to the National Kidney Foundation, irrespective of diagnosis, the stage of the disease is based on the level of kidney function: Stage Description GFR(mL/min/1.73 m(2)) 1 Kidney damage with normal or decreased GFR 90 2 Kidney damage with mild decrease in GFR 60-89 3 Moderate decrease in GFR 30-59 4 Severe decrease in GFR 15-29 5 Kidney failure <15 (or dialysis) 74 CHOLESTEROL INTERPRETATION: Desirable: Less than 200 MG/DL Borderline-High Risk: 200-239 MG/DL High-Risk: 240 MG/DL and over 75 HDL INTERPRETATION: Undesirable: High Risk: Less than 40 MG/DL Desirable: Low Risk: Greater than 60 MG/DL 76 LDL INTERPRETATION: Low Risk Optimal Level: LDL Less than 100 MG/DL Near or Above Optimal: LDL 100-129 MG/DL Borderline High Risk: LDL 130-159 MG/DL High Risk: LDL 160-189 MG/DL Very High Risk: LDL Greater than 189 MG/DL 77 THERAPEUTIC TARGET FOR THE TREATMENT OF DIABETES MELLITUS PATIENTS IS <7% HBA1C, AND IN SELECTIVE PATIENTS <6.0%. PLEASE REFER TO [place] [employer] DIABETIC CARE GUIDELINES FOR FURTHER INFORMATION. 78 Anion gap measurement may be of limited value in the presence of any alkalosis, especially in a combined acid base disorder. . 79 A metabolite of Naproxen, O-desmethylnaproxen, has been shown to interfere with the Jendrassik-Birnamwood method for measuring total bilirubin. Samples from patients who have taken Naproxen have shown spurious elevation in total bilirubin levels. 80 Because ethnic data is not always readily available, this report includes an eGFR for both -Americans and non- Americans. The National Kidney Disease Education Program (NKDEP) does not endorse the use of the MDRD equation for patients that are not between the ages of 18 and 70, are , have extremes of body size, muscle mass, or nutritional status, or are non- or non-. According to the National Kidney Foundation, irrespective of diagnosis, the stage of the disease is based on the level of kidney function: Stage Description GFR(mL/min/1.73 m(2)) 1 Kidney damage with normal or decreased GFR 90 2 Kidney damage with mild decrease in GFR 60-89 3 Moderate decrease in GFR 30-59 4 Severe decrease in GFR 15-29 5 Kidney failure <15 (or dialysis) 81 * SERUM LEVELS OF PSA MEASURED USING THE [employer] ACCESS HYBRITECH IMMUNOASSAY SHOULD NOT BE INTERPRETED ABSOLUTE EVIDENCE OF THE PRESENCE OR ABSENCE OF DISEASE. THE PSA VALUE SHOULD BE USED IN CONJUNCTION WITH OTHER PERTINENT CLINICAL DIAGNOSTIC PROCEDURES. The values obtained with different assay methods or kits cannot be used interchangeably. 82 THERAPEUTIC TARGET FOR THE TREATMENT OF DIABETES MELLITUS PATIENTS IS <7% HBA1C, AND IN SELECTIVE PATIENTS <6.0%. PLEASE REFER TO [place] [employer] DIABETIC CARE GUIDELINES FOR FURTHER INFORMATION. 83 Anion gap measurement may be of limited value in the presence of any alkalosis, especially in a combined acid base disorder. . 84 A metabolite of Naproxen, O-desmethylnaproxen, has been shown to interfere with the Jendrassik-Dc method for measuring total bilirubin. Samples from patients who have taken Naproxen have shown spurious elevation in total bilirubin levels. 85 Because ethnic data is not always readily available, this report includes an eGFR for both -Americans and non- Americans. The National Kidney Disease Education Program (NKDEP) does not endorse the use of the MDRD equation for patients that are not between the ages of 18 and 70, are , have extremes of body size, muscle mass, or nutritional status, or are non- or non-. According to the National Kidney Foundation, irrespective of diagnosis, the stage of the disease is based on the level of kidney function: Stage Description GFR(mL/min/1.73 m(2)) 1 Kidney damage with normal or decreased GFR 90 2 Kidney damage with mild decrease in GFR 60-89 3 Moderate decrease in GFR 30-59 4 Severe decrease in GFR 15-29 5 Kidney failure <15 (or dialysis) 86 MICROALBUMINURIA IN A RANDOM SAMPLE IS DEFINED : MICROALBUMIN/CREATININE RATIO OF 30-299 ug/mg. . 87 * SERUM LEVELS OF PSA MEASURED USING THE [employer] ACCESS HYBRITECH IMMUNOASSAY SHOULD NOT BE INTERPRETED ABSOLUTE EVIDENCE OF THE PRESENCE OR ABSENCE OF DISEASE. THE PSA VALUE SHOULD BE USED IN CONJUNCTION WITH OTHER PERTINENT CLINICAL DIAGNOSTIC PROCEDURES. 88 * SERUM LEVELS OF PSA MEASURED USING THE Klipfolio ACCESS HYBRITECH IMMUNOASSAY SHOULD NOT BE INTERPRETED ABSOLUTE EVIDENCE OF THE PRESENCE OR ABSENCE OF DISEASE. THE PSA VALUE SHOULD BE USED IN CONJUNCTION WITH OTHER PERTINENT CLINICAL DIAGNOSTIC PROCEDURES. 89 Anion gap measurement may be of limited value in the presence of any alkalosis, especially in a combined acid base disorder. . 90 A metabolite of Naproxen, O-desmethylnaproxen, has been shown to interfere with the Jendrassik-Birnamwood method for measuring total bilirubin. Samples from patients who have taken Naproxen have shown spurious elevation in total bilirubin levels. 91 Because ethnic data is not always readily available, this report includes an eGFR for both -Americans and non- Americans. The National Kidney Disease Education Program (NKDEP) does not endorse the use of the MDRD equation for patients that are not between the ages of 18 and 70, are , have extremes of body size, muscle mass, or nutritional status, or are non- or non-. According to the National Kidney Foundation, irrespective of diagnosis, the stage of the disease is based on the level of kidney function: Stage Description GFR(mL/min/1.73 m(2)) 1 Kidney damage with normal or decreased GFR 90 2 Kidney damage with mild decrease in GFR 60-89 3 Moderate decrease in GFR 30-59 4 Severe decrease in GFR 15-29 5 Kidney failure <15 (or dialysis) 92 Lymphopenia % 93 Anion gap measurement may be of limited value in the presence of any alkalosis, especially in a combined acid base disorder. . 94 A metabolite of Naproxen, O-desmethylnaproxen, has been shown to interfere with the Jendrassik-Birnamwood method for measuring total bilirubin. Samples from patients who have taken Naproxen have shown spurious elevation in total bilirubin levels. 95 Because ethnic data is not always readily available, this report includes an eGFR for both -Americans and non- Americans. The National Kidney Disease Education Program (NKDEP) does not endorse the use of the MDRD equation for patients that are not between the ages of 18 and 70, are , have extremes of body size, muscle mass, or nutritional status, or are non- or non-. According to the National Kidney Foundation, irrespective of diagnosis, the stage of the disease is based on the level of kidney function: Stage Description GFR(mL/min/1.73 m(2)) 1 Kidney damage with normal or decreased GFR 90 2 Kidney damage with mild decrease in GFR 60-89 3 Moderate decrease in GFR 30-59 4 Severe decrease in GFR 15-29 5 Kidney failure <15 (or dialysis) 96 CHOLESTEROL INTERPRETATION: Desirable: Less than 200 MG/DL Borderline-High Risk: 200-239 MG/DL High-Risk: 240 MG/DL and over 97 HDL INTERPRETATION: Undesirable: High Risk: Less than 40 MG/DL Desirable: Low Risk: Greater than 60 MG/DL 98 LDL INTERPRETATION: Low Risk Optimal Level: LDL Less than 100 MG/DL Near or Above Optimal: LDL 100-129 MG/DL Borderline High Risk: LDL 130-159 MG/DL High Risk: LDL 160-189 MG/DL Very High Risk: LDL Greater than 189 MG/DL 99 THERAPEUTIC TARGET FOR THE TREATMENT OF DIABETES MELLITUS PATIENTS IS <7% HBA1C, AND IN SELECTIVE PATIENTS <6.0%. PLEASE REFER TO [place] [employer] DIABETIC CARE GUIDELINES FOR FURTHER INFORMATION. 100 Anion gap measurement may be of limited value in the presence of any alkalosis, especially in a combined acid base disorder. . 101 Note change in reference range as of 03/14/08. The change was based on recommendations from the [place] [employer]. 102 Please note change in reference range effective 07 . 103 A metabolite of Naproxen, O-desmethylnaproxen, has been shown to interfere with the Jendrassik-Birnamwood method for measuring total bilirubin. Samples from patients who have taken Naproxen have shown spurious elevation in total bilirubin levels. 104 Because ethnic data is not always readily available, this report includes an eGFR for both -Americans and non- Americans. The National Kidney Disease Education Program (NKDEP) does not endorse the use of the MDRD equation for patients that are not between the ages of 18 and 70, are , have extremes of body size, muscle mass, or nutritional status, or are non- or non-. According to the National Kidney Foundation, irrespective of diagnosis, the stage of the disease is based on the level of kidney function: Stage Description GFR(mL/min/1.73 m(2)) 1 Kidney damage with normal or decreased GFR 90 2 Kidney damage with mild decrease in GFR 60-89 3 Moderate decrease in GFR 30-59 4 Severe decrease in GFR 15-29 5 Kidney failure <15 (or dialysis) 105 THERAPEUTIC TARGET FOR THE TREATMENT OF DIABETES MELLITUS PATIENTS IS <7% HBA1C, AND IN SELECTIVE PATIENTS <6.0%. PLEASE REFER TO [place] [employer] DIABETIC CARE GUIDELINES FOR FURTHER INFORMATION. 106 * SERUM LEVELS OF PSA MEASURED USING THE IESHA [employer] ACCESS HYBRITECH IMMUNOASSAY SHOULD NOT BE INTERPRETED ABSOLUTE EVIDENCE OF THE PRESENCE OR ABSENCE OF DISEASE. THE PSA VALUE SHOULD BE USED IN CONJUNCTION WITH OTHER PERTINENT CLINICAL DIAGNOSTIC PROCEDURES. Procedures Date CPT Code Description Status Comment 11/16/2016 Diabetic Retinal Eye Exam Completed Document: 11/16/16 - Eye Exam Form For Diabetes 11/14/2015 Diabetic Retinal Eye Exam Completed 03/28/2014 Diabetic Retinal Eye Exam Completed 02/13/2013 Diabetic Retinal Eye Exam Completed 10/06/2012 17204 ECHO Stress Test Incl Perf Completed Contiuous ekg Monitoring W/Phys Superv 09/05/2012 08705 EKG Tracing & Interpretation Completed 08/31/2012 94957 Needle Electromyography Each Completed Extremity W/Related Paraspinal Areas 08/31/2012 26443 Nerve Conduction 03-04 Studies Completed 03/20/2012 02752 Rad Exam; Foot Comp Completed 03/20/2012 73043 Rad Exam; Foot Comp Completed 01/06/2012 Diabetic Retinal Eye Exam Completed 11/23/2011 10858 EKG Tracing & Interpretation Completed 11/17/2009 Colonoscopy Completed 08/18/2009 00210 EKG Tracing & Interpretation Completed 01/13/2009 Diabetic Foot Exam Completed 12/14/2006 48964 EKG Tracing & Interpretation Completed 12/14/2006 45866 EKG Tracing & Interpretation Completed 06/26/2004 Diabetic Foot Exam Completed Encounters Type Date Location Provider CPT E/M Dx Office Visit 07/20/2017 [facility] Internal Joseph Martínez [address] S70.362A 2:40p Misti Kang M.D. Office Visit 04/26/2017 [facility] Internal Thi Pan 45336 R10.2 3:30p Misti Kang M.D. M79.1 F41.9 Office Visit 03/31/2017 3:20p [facility] Internal Medicine Thi Pan 43742 J02.9 - [place] MSofia Office Visit 03/18/2017 3:00p [facility] Internal Medicine Thi Pan 90774 R10.2 - [place] M.DLaine Office Visit 09/28/2016 10:20a [facility] Internal Medicine hTi Pan, 02662 E11.9 - [place] Rosa G47.00 M25.551 Office Visit 05/28/2016 2:40p [facility] Internal Medicine Thi Pan 12165 Z00.00 - [place] Rosa E78.5 E11.9 Z23 Office Visit 04/29/2016 9:40a [facility] [place] [address] Z01.818 [place] H26.9 E11.9 Office Visit 11/04/2015 11:00a [facility] [place] [address] J06.9 - [address] Office Visit 10/16/2015 8:40a [facility] Internal Medicine Thi Pan 53841 E11.9 - Jorge Luis Lee K58.9 E78.5 R42 Office Visit 05/21/2015 8:40a [facility] Internal Medicine Thi Pan 42621 M54.9 - [place] Rosa M54.5 Office Visit 03/20/2015 3:00p [facility] Internal Medicine Thi Pan 69154 V70.0 - [place] M.Jaqueline 250.00 724.5 789.06 786.2 V03.82 Office Visit 08/19/2014 10:00a [facility] Internal Medicine Thi Pan 19765 250.00 - [place] Rosa 272.4 443.89 Office Visit 05/20/2014 10:30a [facility] [place] [address] 461.8 - [place] Office Visit 11/12/2013 1:20p [facility] Internal Medicine Thi Pan 67141 789.00 - [place] MSofia 250.00 Office Visit 08/13/2013 8:40a [facility] Internal Medicine Thi Pan 23071 250.00 - [place] M.Jaqueline 272.4 V73.99 388.30 Office Visit 06/07/2013 11:00a [facility] Internal Medicine Thi Pan 86561 724.2 - [place] M.D. 698.9 Office Visit 05/07/2013 9:40a [facility] Internal Medicine Thi Maxim, 99556 724.2 - [place] M.D. 455.6 Office Visit 02/08/2013 8:40a [facility] Internal Medicine Thi Maxim, 32351 V70.0 - [place] M.D. 250.60 272.4 Office Visit 01/05/2013 10:20a [facility] Internal Medicine Thi Maxim, 57668 461.9 - [place] M.D. Office Visit 09/05/2012 8:40a [facility] Internal Medicine Thi Maxim, 74208 250.60 - [place] M.D. 272.4 786.05 Office Visit 08/31/2012 8:30a [facility] Amanda Carbone M.D. 32928 250.60 [facility] 356.9 357.2 Office Visit 07/12/2012 10:40a [facility] Internal Medicine Val Ty, N.P. 10024 461.9 - [place] Office Visit 03/20/2012 3:30p [facility] Tin Marinelli M.D. 98656 337.1 Of [facility] Office Visit 03/07/2012 8:40a [facility] Internal Medicine Thijane Pan 11984 250.00 - [place] M.D. 272.4 729.5 Office Visit 11/23/2011 9:00a [facility] Internal Medicine Thijane Pan 92346 V70.0 - [place] M.D. 250.00 272.4 V03.82 Office Visit 09/06/2011 1:40p [facility] Internal Medicine Thi Maxim, 70751 461.9 - [place] M.D. Office Visit 04/29/2011 11:40a DO Not Use Thi Cotton, 39271 789.00 [facility] Service Manager[place] M.D. Office Visit 04/16/2011 9:00a DO Not Use Thi Cotton, 87637 250.00 [facility] Manager[place] M.D. 789.00 272.4 238.2 Office Visit 01/18/2011 11:00a DO Not Use Val Ty, 29114 465.9 [facility] Manager[facility] N.P. Office Visit 10/13/2010 9:30a DO Not Use Thi Cotton, 46754 250.00 [facility] Manager[place] M.D. 724.5 465.9 Office Visit 09/17/2010 9:00a DO Not Use Thi Cotton, 11410 466.0 [facility] M.D. Office Visit 09/10/2010 10:45a DO Not Use Thi Cotton, 56527 461.9 [facility] Manager[place] M.D. 250.00 338.29 Office Visit 08/25/2010 9:00a DO Not Use Thi Cotton, 80679 V70.0 [facility] Manager[place] M.D. 338.19 Office Visit 05/27/2010 10:00a DO Not Use Val Varn, N.P. 08595 461.9 [facility] Service [facility] Office Visit 03/02/2010 11:30a DO Not Use Thi Cotton, 29008 272.4 [facility] Service Manager[place] M.D. 790.21 Office Visit 01/28/2010 3:45p DO Not Use Val Varn, 53694 719.46 [facility] Service Manager[facility] N.P. Office Visit 10/09/2009 8:30a DO Not Use Val Varn, 21448 719.46 Medicine [facility] Health Service Manager[facility] N.P. Office Visit 08/18/2009 8:45a DO Not Use RadDilma brown, 19728 V70.0 [facility] Service Manager[facility] M.D. 272.0 790.21 780.52 536.8 Office Visit 04/22/2009 4:00p DO Not Use Val Varn, 96042 461.9 Medicine [facility] Health Service Manager[facility] N.P. Office Visit 09/23/2008 4:30p DO Not Use Dilma Alvarez, 45380 465.9 [facility] Service Manager[facility] M.D. Office Visit 04/24/2008 2:15p DO Not Use Dilma Alvarez, 52888 V72.84 [facility] Service Manager[facility] M.D. 272.0 790.21 Office Visit 02/23/2008 3:45p DO Not Use [facility] Edwige Almeida, 71850 462 M.D., FACP Office Visit 12/20/2007 9:15a DO Not Use [facility] RadDilma brown, 85807 V70.0 M.D. 272.0 790.21 Office Visit 08/09/2007 8:30a DO Not Use RadomsJj helma, 49448 724.2 [facility] Service Manager[facility] M.D. 724.4 Office Visit 03/16/2007 3:00p DO Not Use RadomskiJja, 28033 790.21 [facility] Service Manager[place] M.D. Office Visit 12/14/2006 3:15p DO Not Use RadomskiJja, 62109 V70.0 Medicine [facility] Health Service Manager[place] M.D. Office Visit 11/25/2006 12:45p DO Not Use RadomskiJja, 86221 726.10 [facility] Health Service Manager[place] M.D. Office Visit 09/15/2006 3:45p DO Not Use RadomsJj helma, 72431 250.00 Medicine [facility] Health Service Manager[place] M.D. Office Visit 08/04/2006 4:00p DO Not Use RadomsJj helma, 39119 478.11 Medicine And Health Service Manager[place] M.D. 790.21 Office Visit 01/27/2006 8:30a DO Not Use RadomsJj helma, 56291 272.4 Medicine And Health Service Manager[place] M.D. 790.21 Plan of Care Future Appointment(s):06/12/2018 11:00 am - Thi Pan M.D. at [facility] Internal Medicine - Ecqanarqc42/12/2018 - Thi Pan M.D.E11.9 Type 2 diabetes mellitus without complicationsComments:Your A1C was 6.3 which is great Gradually work up on the ellipticalFollow up:.5 Hyperlipidemia, unspecifiedComments:Statins are recommended for all people with diabetes because of risk, regardless of cholesterol numbers.Your 10 year risk of heart disease/stroke is 24%, drops to 17% with statin
[2017-11-29 16:35] VITALS: BP 102/60
--- NOTE | 2017-11-29 17:03 | UC ---
Skin Complaint HPI - HPI Summary HPI Summary: Patient is a 72-year-old male presenting to the with chief complaint of laceration to the middle toe. He sustained a laceration this morning while getting out of the shower. Unknown how the laceration occurred, but he believes it may have been from his other toenail. History of type 2 diabetes and is concerned for infection or risk of infection. Denies any fevers, sweats , chills. Denies any numbness or tingling in the bilateral feet. Bleeding is well controlled on arrival. - History of Current Complaint Hx Obtained From: Patient Onset/Duration: Sudden Onset Skin Exposure Onset/Duration: Hours Ago Timing: Constant Onset Severity: Mild Current Severity: Mild Pain Intensity: 2 Pain Scale Used: 0-10 Numeric Location: Foot (Left) Aggravating Factor(s): Nothing Alleviating Factor(s): Nothing Associated Signs & Symptoms: Positive: Negative Related History: Trauma <Kathe Dennison - Last Filed: 11/29/17 17:36> <Stefanie Tian - Last Filed: 11/29/17 17:41> - History of Current Complaint Chief Complaint: UCLowerExtremity Time Seen by Provider: 11/29/17 16:31 Stated Complaint: CUT ON LEFT FOOT - Allergy/Home Medications Allergies/Adverse Reactions: Allergies Allergy/AdvReac Type Severity Reaction Status Date / Time celecoxib [From Celebrex] Allergy Rash Verified 11/29/17 16:36 metformin Allergy Diarrhea Verified 11/29/17 16:36 silver sulfadiazine Allergy Rash Verified 11/29/17 16:36 [From Silvadene] venlafaxine [From Effexor] Allergy Edema Verified 11/29/17 16:36 Review of Systems Constitutional: Negative Skin: Other - 2cm laceration to the middle left toe ENT: Negative Respiratory: Negative Motor: Negative Neurovascular: Negative Musculoskeletal: Negative Neurological: Negative Is Patient Immunocompromised?: No All Other Systems Reviewed And Are Negative: Yes <Kathe Dennison - Last Filed: 11/29/17 17:36> PMH/Surg Hx/FS Hx/Imm Hx Previously Healthy: Yes - Surgical History Surgical History: Yes Surgery Procedure, Year, and Place: GALLBLADDER 1997. ROTATOR CUFF TEAR SHOULDER/AC JOINT CLEANOUT 2002. LEFT ROTATOR CUFF 2006. LUMP REMOVED LEFT TESTICLE 2007. BASAL CELL CARCINOMA REMOVED FROM HEAD 2008. BILATERAL CATARACTS 2016 - Social History Occupation: Unemployed Lives: With Family Alcohol Use: Weekly Alcohol Amount: FEW GLASSES OF WINE WEEKLY Substance Use Type: None Smoking Status (MU): Never Smoked Tobacco Have You Smoked in the Last Year: No <Kathe Dennison - Last Filed: 11/29/17 17:36> Physical Exam Triage Information Reviewed: Yes Appearance: Well-Appearing, Well-Nourished Vital Signs: Initial Vital Signs Temp 98.6 F 11/29/17 16:30 Pulse 80 11/29/17 16:30 Resp 18 11/29/17 16:30 BP 102/60 11/29/17 16:30 Pulse Ox 99 11/29/17 16:30 Vital Signs Reviewed: Yes Eye Exam: Normal Eyes: Positive: Conjunctiva Clear Neck exam: Normal Neck: Positive: Supple, No Lymphadenopathy Respiratory Exam: Normal Cardiovascular Exam: Normal Musculoskeletal Exam: Normal Neurological Exam: Normal Psychological: Positive: Normal Response To Family Skin: Positive: Other - 2cm laceration to the middle left toe <Kathe Dennison - Last Filed: 11/29/17 17:36> Vital Signs: Initial Vital Signs Temp 98.6 F 11/29/17 16:30 Pulse 80 11/29/17 16:30 Resp 18 11/29/17 16:30 BP 102/60 11/29/17 16:30 Pulse Ox 99 11/29/17 16:30 <Stefanie Tian - Last Filed: 11/29/17 17:41> Laceration Repair - Laceration Repair 1 Description: Linear Laceration Size After Repair: Length (cm) - 2 Modified For Repair: No Cleansing Completed Via Routine Prep: No Irrigation With Pressure Irrigation Device: No Closure Material: Skin Adhesive <Kathe Dennison - Last Filed: 11/29/17 17:36> Course/Dx - Course Course Of Treatment: During the course of treatment, the patient is evaluated for 2cm laceration to the middle left toe. There does not appear to be deep enough to require sutures. Skin adhesive applied. 2 layers applied. Gauze wrapped. Patient is encouraged to follow-up for any erythema or warmth. He understands these precautions. - Diagnoses Provider Diagnoses: Laceration <Kathe Dennison - Last Filed: 11/29/17 17:36> Discharge - Sign-Out/Discharge Documenting (check all that apply): Discharge/Admit/Transfer - Billing Disposition and Condition Condition: STABLE Disposition: HOME <Kathe Dennison - Last Filed: 11/29/17 17:36> - Billing Disposition and Condition Condition: STABLE Disposition: HOME <Stefanie Tian - Last Filed: 11/29/17 17:41> - Discharge Plan Condition: Stable Disposition: HOME Patient Education Materials: Skin Adhesive Care (ED) Referrals: Thi Pan MD [Primary Care Provider] - Additional Instructions: Keep the toe wrapped x 1 day You may also reapply as the adhesive begins to slowly slough off You will not need a bandage after 1 day Attestation Statement User Type: Provider - I was available for consult. This patient was seen by the LINDA. The patient was not presented to, seen by, or examined by me. -Ronny <Stefanie Tian - Last Filed: 11/29/17 17:41>
== END 2017-11-29 17:10 | disposition home or self-care (01) ==
LOC: UCEAST 16:20
DX: S91.115A Laceration without foreign body of left lesser toe(s) without damage to nail, initial encounter (principal); W26.9XXA Contact with unspecified sharp object(s), initial encounter; Y93.E1 Activity, personal bathing and showering; Y92.002 Bathroom of unspecified non-institutional (private) residence as the place of occurrence of the external cause; Z88.8 Allergy status to other drugs, medicaments and biological substances
CPT/HCPCS: 12001; 99212; G0463

== ENCOUNTER 2018-02-25 13:05 | Emergency (ER) | payer MEDICARE ==
[2018-02-25 13:14] VITALS: BP 116/64
--- NOTE | 2018-02-25 13:23 | UC ---
Upper Extremity HPI - HPI Summary HPI Summary: This is scribe Lorie Ang documenting for attending Morales Chand M.D. Pt is a 72 y/o M who presents to [facility] with a left middle finger laceration. At about 1230 today he cut the finger on a table saw and the bleeding is currently controlled. Associated pain is mild, ranked 2/10 on triage. Unsure of last Tetanus vaccination, though he believes it was more than 5 years ago. PMHx Type II DM. - History of Current Complaint Chief Complaint: UCUpperExtremity Stated Complaint: FINGER INJURY Time Seen by Provider: 02/25/18 13:17 Hx Obtained From: Patient Onset/Duration: Still Present Severity Currently: Mild Pain Intensity: 2 Pain Scale Used: 0-10 Numeric Location Of Pain: Is Discrete @ - L middle finger Aggravating Factor(s): Nothing Alleviating Factor(s): Nothing Associated Signs And Symptoms: Positive: Other - Laceration - Allergies/Home Medications Allergies/Adverse Reactions: Allergies Allergy/AdvReac Type Severity Reaction Status Date / Time celecoxib [From Celebrex] Allergy Rash Verified 02/25/18 13:15 metformin Allergy Diarrhea Verified 02/25/18 13:15 silver sulfadiazine Allergy Rash Verified 02/25/18 13:15 [From Silvadene] venlafaxine [From Effexor] Allergy Edema Verified 02/25/18 13:15 PMH/Surg Hx/FS Hx/Imm Hx Endocrine History: Diabetes, Dyslipidemia Cardiovascular History: Hypertension - Surgical History Surgical History: Yes Surgery Procedure, Year, and Place: GALLBLADDER 1997. ROTATOR CUFF TEAR SHOULDER/AC JOINT CLEANOUT 2002. LEFT ROTATOR CUFF 2006. LUMP REMOVED LEFT TESTICLE 2006. BASAL CELL CARCINOMA REMOVED FROM HEAD 2008. BILATERAL CATARACTS 2016 - Family History Known Family History: Positive: Cardiac Disease, Diabetes - Social History Alcohol Use: Occasionally Alcohol Amount: FEW GLASSES OF WINE WEEKLY Substance Use Type: None Smoking Status (MU): Never Smoked Tobacco Have You Smoked in the Last Year: No - Immunization History Most Recent Tetanus Shot: unknown Review of Systems Constitutional: Negative Skin: Other - L middle finger laceration and pain Eyes: Negative ENT: Negative Respiratory: Negative Cardiovascular: Negative Gastrointestinal: Negative Genitourinary: Negative Motor: Negative Neurovascular: Negative Musculoskeletal: Negative Neurological: Negative Psychological: Negative All Other Systems Reviewed And Are Negative: Yes Physical Exam - Summary Physical Exam Summary: VITAL SIGNS: Reviewed. GENERAL: Patient is a well-developed and nourished male who is lying comfortable in the stretcher. Patient is not in any acute respiratory distress. HEAD AND FACE: Normocephalic EYES: PERRLA, EOMI x 2. EARS: Hearing grossly intact. MOUTH: Oropharynx within normal limits. NECK: Supple, trachea is midline, no adenopathy, no JVD, no carotid bruit. CHEST: Symmetric, no tenderness at palpation LUNGS: Clear to auscultation bilaterally. No wheezing or crackles. CVS: Regular rate and rhythm, S1 and S2 present, no murmurs or gallops appreciated. EXTREMITIES: Full ROM in all major joints, no edema, no cyanosis or clubbing. 0.5 cm laceration, almost under the nail on the left middle finger. NEURO: Alert and oriented x 3. No acute neurological deficits. Speech is normal and follows commands. SKIN: Dry and warm Triage Information Reviewed: Yes Vital Signs: Initial Vital Signs Temp 98.6 F 02/25/18 13:12 Pulse 87 02/25/18 13:12 Resp 18 02/25/18 13:12 BP 116/64 02/25/18 13:12 Pulse Ox 99 02/25/18 13:12 Vital Signs Reviewed: Yes Upper Extremity Course/Dx - Course Course Of Treatment: This patient is a 72-year-old male who presents to the urgent care with a chief complaint of having a right middle finger laceration. The patient declined sutures therefore we irrigated the wound, the place and Steri-Strips and he was given a tetanus booster. The patient has past medical history significant for diabetes therefore the patient was given antibiotics to protect the wound from infection. The patient will be discharged home with follow-up with primary care physician. He was given instructions that if increases in pain or becomes red or discharged he should immediately return to the urgent care or the emergency room for further workup and management. The patient understands and agrees. - Differential Dx/Diagnosis Provider Diagnoses: Laceration Discharge - Sign-Out/Discharge Documenting (check all that apply): Patient Departure - Discharge - Discharge Plan Condition: Stable Disposition: HOME Prescriptions: Cephalexin CAP* [Keflex CAP*] 250 mg PO TID #30 cap Patient Education Materials: Laceration (ED) Referrals: Thi Pan MD [Primary Care Provider] - Additional Instructions: Take medications as instructed and adhere to plan Take Acetaminophen or ibuprofen for pain or fever Increase your fluid intake Return to the UC or go to the emergency department if symptoms worsen Follow-up with primary care physician in next 2-3 days - Billing Disposition and Condition Condition: STABLE Disposition: Home
[2018-02-25] MEDS ORDERED: Benzoin Compound STICK TOPICAL ONE (13:24)
[2018-02-25] MEDS ORDERED: Tetan/Diph/Pertus SYR(Tdap)* 0.5 ML SYR(BOOSTRIX) use SYR IM ONE (13:29)
== END 2018-02-25 14:25 | disposition home or self-care (01) ==
LOC: UCEAST 13:05
DX: S61.213A Laceration without foreign body of left middle finger without damage to nail, initial encounter (principal); W31.2XXA Contact with powered woodworking and forming machines, initial encounter; Y93.9 Activity, unspecified; Y92.9 Unspecified place or not applicable; Z23 Encounter for immunization; Z88.8 Allergy status to other drugs, medicaments and biological substances; Z82.49 Family history of ischemic heart disease and other diseases of the circulatory system; Z83.3 Family history of diabetes mellitus
CPT/HCPCS: 90471; 90715; 99212; G0463